=== PATIENT | male | born 1940 | race Caucasian/White ===

== ENCOUNTER 2016-08-24 08:21 | Outpatient (CLI) | payer MEDICARE, OTHER | END 2016-08-24 08:22 | disposition home or self-care (01) | DX: Z79.899 Other long term (current) drug therapy (principal); J45.20 Mild intermittent asthma, uncomplicated; Z12.5 Encounter for screening for malignant neoplasm of prostate; R73.09 Other abnormal glucose | CPT/HCPCS: 80053; 80061; 83036; 85025; G0103 ==

== ENCOUNTER 2016-11-12 11:58 | Outpatient (CLI) | payer MEDICARE, OTHER | END 2016-11-12 11:59 | disposition home or self-care (01) | DX: M51.36 Other intervertebral disc degeneration, lumbar region (principal); M47.816 Spondylosis without myelopathy or radiculopathy, lumbar region ==

== ENCOUNTER 2016-12-14 16:13 | Outpatient (CLI) | payer MEDICARE, OTHER | END 2016-12-14 16:14 | disposition home or self-care (01) | DX: R05 Cough (principal); R31.9 Hematuria, unspecified; R50.9 Fever, unspecified; R06.9 Unspecified abnormalities of breathing ==

== ENCOUNTER 2017-02-09 16:23 | Outpatient (CLI) | payer MEDICARE, OTHER | END 2017-02-09 16:24 | LOC: LAB.R 16:23 | PROVIDERS: ATTEND Internal Medicine | DX: Z79.899 Other long term (current) drug therapy (principal) | CPT/HCPCS: 82565 ==

== ENCOUNTER 2017-02-09 17:55 | Outpatient (CLI) | payer MEDICARE, OTHER ==
[2017-02-09] MEDS ORDERED: IOPAMIDOL-300 100 ML VIAL IVP ONE (19:19)
[2017-02-09] MEDS ORDERED: IOPAMIDOL-300 50 ML VIAL PO ONE (19:19)
--- NOTE | 2017-02-09 20:14 | CT Preliminary Report ---
Exam: CT Abdomen/Pelvis W/ IMPRESSION: 1. No bowel obstruction, fluid collections or acute inflammatory changes. 2. Diverticulosis. 3. Status post cholecystectomy. [facility] SITE ID: [id number]
--- NOTE | 2017-02-09 20:17 | CT Report ---
EXAM: CT ABDOMEN AND PELVIS EXAM DATE: 02/09/2017 07:17 PM. CLINICAL HISTORY: RLQ PAIN. COMPARISONS: 05/22/2013 CT. TECHNIQUE: Routine helical CT imaging was performed through the abdomen and pelvis. IV contrast: 100 mL Isovue-300. Enteric contrast: No. Reconstructions: Coronal and sagittal. In accordance with CT protocol optimization, one or more of the following dose reduction techniques w ere utilized for this exam: automated exposure control, adjustment of mA and/or KV based on patient s ize, or use of iterative reconstructive technique. FINDINGS: Lung Bases: Unremarkable. Liver: Normal. No masses. Gallbladder/Bile Ducts: The gallbladder has been removed. There is no biliary dilatation. Spleen: Normal. Pancreas: Normal. Adrenal Glands: Normal. Kidneys: Left renal 5.2 cm cyst. No hydronephrosis. Peritoneal Cavity/Bowel: Status post Julia fundoplication. There is no bowel obstruction. No free ai r or fluid collections. There is diverticulosis without diverticulitis. No evidence of appendicitis. Pelvic Organs: Normal. The bladder and visualized pelvic organs are within normal limits. Vasculature: No aneurysms or other significant abnormality. Bones: No significant abnormality. Other: None. IMPRESSION: 1. No bowel obstruction, fluid collections or acute inflammatory changes. 2. Diverticulosis. 3. Status post cholecystectomy. [facility] Referring Provider Line: [phone] SITE ID: [id number]
== END 2017-02-09 17:56 | disposition home or self-care (01) ==
LOC: DI 17:55
PROVIDERS: ATTEND Internal Medicine
DX: R10.31 Right lower quadrant pain (principal); K57.30 Diverticulosis of large intestine without perforation or abscess without bleeding; Z90.49 Acquired absence of other specified parts of digestive tract
CPT/HCPCS: 74177

== ENCOUNTER 2017-02-09 19:18 | Emergency (ER) | payer MEDICARE, OTHER ==
[2017-02-09] MEDS ORDERED: diphenhydrAMINE INJ 50 MG/ML VIAL IVP STA (19:35)
[2017-02-09] MEDS ORDERED: diphenhydrAMINE INJ 50 MG/ML VIAL ONE (19:38)
--- NOTE | 2017-02-09 19:39 | ED Physician Documentation ---
History of Present Illness - Stated complaint Stated Complaint: RASH - Chief complaint Chief Complaint: General - History obtained from History obtained from: Patient - History of Present Illness Timing: Today (He had an outpatient CAT scan tonight with IV and oral contrast to evaluate for a hernia, shortly after the contrast noticed a hive on his left shoulder and then started shaking uncontrollably. He denies any shortness of breath or throat swelling. Of note he has a history of epinephrine allergy with a similar reaction to this, shaking, uncontrollably, after eating too many oysters several years ago.) Review of Systems Constitutional: denies: Fever, Chills Cardiac: denies: Chest pain / pressure, Palpitations Respiratory: denies: Dyspnea, Cough GI: denies: Abdominal Pain PD PAST MEDICAL HISTORY - Past Medical History Cardiovascular: None Respiratory: None Neuro: None GI: Other - Past Surgical History Past Surgical History: Yes General: Appendectomy, Bowel surgery, Hiatal hernia repair, Other - Present Medications Home Medications: Ambulatory Orders Medication Instructions Recorded Confirmed Gabapentin 300 mg PO DAILY 02/09/17 02/09/17 Verapamil [Calan] 80 mg PO DAILY 02/09/17 02/09/17 - Allergies Allergies/Adverse Reactions: Allergies Allergy/AdvReac Type Severity Reaction Status Date / Time epinephrine Allergy Rash Verified 05/20/13 11:44 latex Allergy Rash Verified 05/20/13 11:44 - Social History Does the pt smoke?: No Smoking Status: Never smoker Does the pt drink ETOH?: Yes Does the pt have substance abuse?: No - Immunizations Immunizations are current?: Yes - POLST Patient has POLST: No PD ED PE NORMAL - Vitals Vital signs reviewed: Yes - General General: Alert and oriented X 3, Other (quite tremulous and anxious) - HEENT HEENT: PERRL, Pharynx benign - Cardiac Cardiac: RRR, No murmur - Respiratory Respiratory: No respiratory distress, Clear bilaterally - Abdomen Abdomen: Non tender - Derm Derm: Other (No hives are evidence at this juncture) - Extremities Extremities: Other (He has uncontrollable shaking of both lower extremities more than upper extremities.) - Neuro Neuro: Alert and oriented X 3, Normal speech - Psych Psych: Normal mood, Normal affect Results - Vitals Vitals: Vital Signs - 24 hr 02/09/17 02/09/17 19:20 19:43 Temperature 36.0 C L Heart Rate 84 68 Respiratory 18 16 Rate Blood Pressure 164/72 H 154/75 H O2 Saturation 95 98 Oxygen O2 Source Room air PD MEDICAL DECISION MAKING - ED course ED course: He has a potential allergic reaction IV contrast. The reaction is mostly shaking of the lower extremities. There is no evidence of anaphylaxis at this juncture. He says he's had similar reactions to epinephrine before given for allergic reactions. He is administered some Benadryl and observed. The shaking and all of his symptoms spontaneously stopped actually before the administration of Benadryl and he refused IV. He was given oral Benadryl and observed without further symptoms. Departure - Departure Disposition: 01 Home, Self Care Clinical Impression: Allergy to intravenous contrast Condition: Good Record reviewed to determine appropriate education?: Yes Comments: Think long and hard before receiving IV contrast again. Follow up with your physician. Your blood pressure was elevated today on check in to the emergency department. This does not mean that you have hypertension, it is a common phenomenon to check into the emergency department and have elevated blood pressure. I recommend that you see your primary care physician within the week to have it rechecked when you're feeling better.
[2017-02-09] MEDS ORDERED: diphenhydrAMINE 25 MG CAPSULE PO ONE (19:40)
[2017-02-09] MEDS: diphenhydrAMINE 25 MG CAPSULE PO STA ×2 (19:52→19:53)
[2017-02-09 20:34] VITALS: BP 149/72
== END 2017-02-09 20:30 | disposition home or self-care (01) ==
LOC: ED 19:18
DX: L27.0 Generalized skin eruption due to drugs and medicaments taken internally (principal); T50.8X5A Adverse effect of diagnostic agents, initial encounter; Y92.238 Other place in hospital as the place of occurrence of the external cause; R03.0 Elevated blood-pressure reading, without diagnosis of hypertension
CPT/HCPCS: 74177; 82565; 96374; 99283; 99284; A9270; Q9967

== ENCOUNTER 2017-08-02 08:00 | Outpatient (CLI) | payer MEDICARE, OTHER ==
[2017-08-02 16:18] LABS: CALCIUM 9.3 mg/dL (8.5-10.3); CREATININE 1.1 mg/dL (0.6-1.2)
[2017-08-02 16:50] LABS: BASOPHILS # (AUTO) 0.1 10^3/uL (0.0-0.1); BASOPHILS % (AUTO) 1.1 %; EOSINOPHILS # (AUTO) 0.6 10^3/uL (0.0-0.7); EOSINOPHILS % (AUTO) 9.6 %; HCT - HEMATOCRIT 44.6 % (42.0-52.0); HGB - HEMOGLOBIN 14.8 g/dL (14.0-18.0); LYMPHOCYTES % (AUTO) 16.1 %; MEAN CORPUSCULAR HEMOGLOBIN 30.2 pg (27.0-31.0); MEAN CORPUSCULAR HGB CONC 33.2 g/dL (32.0-36.0); MEAN CORPUSCULAR VOLUME 90.9 fL (80.0-94.0); MEAN PLATELET VOLUME 9.5 fL (7.4-11.4); MONOCYTES # (AUTO) 0.8 10^3/uL (0.0-1.0); MONOCYTES % (AUTO) 12.7 %; NEUTROPHILS # (AUTO) 3.7 10^3/uL (1.5-6.6); NEUTROPHILS % (AUTO) 60.5 %; NUCLEATED RED BLOOD CELLS AUTO 0.1 /100WBC; RED CELL DISTRIBUTION WIDTH 12.8 % (12.0-15.0); UNCORRECTED WHITE BLOOD COUNT 6.2 x10^3/uL; WHITE BLOOD COUNT 6.2 x10^3/uL (4.8-10.8)
== END 2017-08-02 08:01 | disposition home or self-care (01) ==
LOC: LAB.R 08:00
PROVIDERS: ATTEND Internal Medicine
DX: J45.901 Unspecified asthma with (acute) exacerbation (principal)
CPT/HCPCS: 80048; 85025

== ENCOUNTER 2017-10-12 08:00 | Outpatient (CLI) | payer MEDICARE, OTHER ==
[2017-10-12 11:57] LABS: ALBUMIN 4.2 g/dL (3.2-5.5); ALBUMIN/GLOBULIN RATIO 1.4 (1.0-2.2); BILIRUBIN,TOTAL 0.8 mg/dL (0.2-1.0); CALCIUM 9.3 mg/dL (8.5-10.3); CREATININE 0.9 mg/dL (0.6-1.2); TOTAL PROTEIN 7.2 g/dL (6.7-8.2)
== END 2017-10-12 08:01 | disposition home or self-care (01) ==
LOC: LAB.R 08:00
PROVIDERS: ATTEND Internal Medicine
DX: M19.90 Unspecified osteoarthritis, unspecified site (principal); J45.909 Unspecified asthma, uncomplicated; Z79.899 Other long term (current) drug therapy
CPT/HCPCS: 80053

== ENCOUNTER 2017-10-21 08:53 | Outpatient (CLI) | payer MEDICARE, OTHER ==
--- NOTE | 2017-10-21 11:52 | XRAY Report ---
TWO VIEW RIGHT HIP: 10/21/2017 CLINICAL INDICATION: Pain. FINDINGS: Frontal view of the hips and pelvis and frogleg lateral view of the right hip demonstrate moderate osteoarthritis. There is no evidence of acute fracture or dislocation. No foreign body is seen in the soft tissues. IMPRESSION: MODERATE RIGHT HIP OSTEOARTHRITIS. TD: 10/21/2017 11:51
== END 2017-10-21 08:54 | disposition home or self-care (01) ==
LOC: DI 08:53
PROVIDERS: ATTEND Internal Medicine
DX: M16.11 Unilateral primary osteoarthritis, right hip (principal)

== ENCOUNTER 2018-03-07 16:50 | Outpatient (CLI) | payer MEDICARE, OTHER ==
--- NOTE | 2018-03-08 09:22 | XRAY Report ---
Procedure Date: 03/07/2018 Accession Number: [id number] / [id number] Procedure: XR - Foot 3 View LT CPT Code: FULL RESULT: EXAM: Foot 3 View LT DATE: 03/07/2018 4:54 PM CLINICAL HISTORY: PAIN 2ND DIGIT,2ND MT L COMPARISON: None. TECHNIQUE: 3 views. FINDINGS: Bones: There is a minimal cortical irregularity about the medial aspect of the proximal second metatarsal metadiaphysis seen on one view only. Cortical contiguity is not interrupted, no displaced fracture. Bones are otherwise normal without fracture or dislocation. Joints: Normal. No subluxations. Soft Tissues: Normal. No soft tissue swelling. IMPRESSION: Question nonspecific minimal cortical irregularity about the proximal medial left second metatarsal as described. Please correlate the finding to point tenderness at this region. [facility]
== END 2018-03-07 16:51 | disposition home or self-care (01) ==
LOC: DI 16:50
PROVIDERS: ATTEND Podiatrist
DX: M79.672 Pain in left foot (principal)

== ENCOUNTER 2019-05-21 15:38 | Emergency (ER) | payer MEDICARE, OTHER ==
[2019-05-21 15:48] VITALS: BP 135/85
[2019-05-21 17:28] LABS: BASOPHILS # (AUTO) 0.1 10^3/uL (0.0-0.1); BASOPHILS % (AUTO) 0.7 %; EOSINOPHILS # (AUTO) 0.7 10^3/uL (0.0-0.7); EOSINOPHILS % (AUTO) 7.8 %; HGB - HEMOGLOBIN 13.9 g/dL (14.0-18.0); LYMPHOCYTES # (AUTO) 1.5 10^3/uL (1.5-3.5); LYMPHOCYTES % (AUTO) 15.4 %; MEAN CORPUSCULAR HEMOGLOBIN 29.6 pg (27.0-31.0); MEAN CORPUSCULAR HGB CONC 32.3 g/dL (32.0-36.0); MEAN CORPUSCULAR VOLUME 91.5 fL (80.0-94.0); MEAN PLATELET VOLUME 10.1 fL (7.4-11.4); MONOCYTES # (AUTO) 0.7 10^3/uL (0.0-1.0); MONOCYTES % (AUTO) 7.1 %; NEUTROPHILS # (AUTO) 6.5 10^3/uL (1.5-6.6); NEUTROPHILS % (AUTO) 68.6 %; PLT - PLATELET COUNT 290 10^3/uL (130-450); RED CELL DISTRIBUTION WIDTH 12.3 % (12.0-15.0); WHITE BLOOD COUNT 9.4 x10^3/uL (4.8-10.8)
--- NOTE | 2019-05-21 17:28 | Ultrasound Report ---
Reason: B LE pain s/p surgery Procedure Date: 05/21/2019 Accession Number: [id number] / [id number] Procedure: US - Duplex Ext Veins Bilateral CPT Code: FULL RESULT: EXAM: BILATERAL LOWER EXTREMITY VENOUS ULTRASOUND EXAM DATE: 05/21/2019 05:05 PM. CLINICAL HISTORY: Bilateral LE pain s/p surgery. COMPARISON: None. TECHNIQUE: Real-time sonographic vascular imaging was performed by the ware tester through the lower extremities utilizing both color-flow and Doppler spectral analysis. Multiple customer care representative static images were saved for review. FINDINGS: Right: Common Femoral Vein (CFV): Normal. CFV-GSV Junction: Normal. Profunda Femoral Vein (PFV): Normal. Femoral Vein (FV) Prox: Normal. Femoral Vein (FV) Mid: Normal. Femoral Vein (FV) Dist: Normal. Popliteal Vein: Normal. Posterior Tibial Veins: Normal. Peroneal Veins: Normal. Left: Common Femoral Vein (CFV): Normal. CFV-GSV Junction: Normal. Profunda Femoral Vein (PFV): Normal. Femoral Vein (FV) Prox: Normal. Femoral Vein (FV) Mid: Normal. Femoral Vein (FV) Dist: Normal. Popliteal Vein: Normal. Posterior Tibial Veins: Normal. Peroneal Veins: Normal. Other: None. IMPRESSION: No evidence for deep venous thrombosis bilaterally. [facility]
[2019-05-21 17:40] LABS: ALBUMIN 4.1 g/dL (3.2-5.5); ALBUMIN/GLOBULIN RATIO 1.6 (1.0-2.2); BILIRUBIN,TOTAL 0.5 mg/dL (0.2-1.0); CALCIUM 9.1 mg/dL (8.5-10.3); TOTAL PROTEIN 6.7 g/dL (6.7-8.2)
--- NOTE | 2019-05-21 18:20 | ED Physician Documentation ---
History of Present Illness - Stated complaint Stated Complaint: POST SURGICAL COMPLICATIONS - Chief complaint Chief Complaint: General - History obtained from History obtained from: Patient, Family - History of Present Illness Timing: How many days ago (several days) Pain level max: 4 Pain level now: 2 Improved by: nothing Worsened by: nothing - Additonal information Additional information: Patient is status post left total hip replacement by Dr. Blanco approximately 4 weeks ago. Started having tingling in the bilateral calves and feet. Also started having some pain. Called his office and was referred here. No chest pain. no shortness of breath. no swelling. no bruising. Review of Systems Ten Systems: 10 systems reviewed and negative Constitutional: denies: Fever, Chills Throat: denies: Sore throat Respiratory: denies: Dyspnea, Cough GI: denies: Nausea, Vomiting, Diarrhea Skin: denies: Rash Musculoskeletal: denies: Neck pain, Back pain Neurologic: denies: Headache PD PAST MEDICAL HISTORY - Past Medical History Cardiovascular: None Respiratory: None GI: Other - Past Surgical History Past Surgical History: Yes General: Appendectomy, Bowel surgery, Hiatal hernia repair, Other - Present Medications Home Medications: Ambulatory Orders Medication Instructions Recorded Confirmed Gabapentin 300 mg PO DAILY 02/09/17 02/09/17 - Allergies Allergies/Adverse Reactions: Allergies Allergy/AdvReac Type Severity Reaction Status Date / Time epinephrine Allergy Rash Verified 02/09/17 20:35 Iodine and Iodide Containing Allergy Rash Verified 02/09/17 20:35 Produc latex Allergy Rash Verified 02/09/17 20:35 - Social History Does the pt smoke?: No Smoking Status: Never smoker Does the pt drink ETOH?: Yes Does the pt have substance abuse?: No - Immunizations Immunizations are current?: Yes - POLST Patient has POLST: No PD ED PE NORMAL - Vitals Vital signs reviewed: Yes - General General: Alert and oriented X 3, No acute distress, Well developed/nourished - HEENT HEENT: Moist mucous membranes - Neck Neck: Supple, no meningeal sign - Cardiac Cardiac: RRR, Strong equal pulses - Respiratory Respiratory: No respiratory distress, Clear bilaterally - Abdomen Abdomen: Soft, Non tender, Non distended - Derm Derm: Warm and dry - Extremities Extremities: No edema, No calf tenderness / cord - Neuro Neuro: Alert and oriented X 3, No motor deficit, No sensory deficit - Psych Psych: Normal mood, Normal affect Results - Vitals Vitals: Vital Signs - 24 hr 05/21/19 15:44 Temperature 36 C L Heart Rate 73 Respiratory 18 Rate Blood Pressure 135/85 H O2 Saturation 100 Oxygen O2 Source Room air - Labs Labs: Laboratory Tests 05/21/19 05/21/19 17:15 17:15 WBC 9.4 RBC 4.70 Hgb 13.9 L Hct 43.0 MCV 91.5 MCH 29.6 MCHC 32.3 RDW 12.3 Plt Count 290 MPV 10.1 Neut # (Auto) 6.5 Lymph # (Auto) 1.5 [place] # (Auto) 0.7 Eos # (Auto) 0.7 Baso # (Auto) 0.1 Absolute Nucleated RBC 0.00 Nucleated RBC % 0.0 Sodium 141 Potassium 4.2 Chloride 106 Carbon Dioxide 29 Anion Gap 6.0 BUN 21 H Creatinine 1.0 Estimated GFR (MDRD) 72 L Glucose 96 Calcium 9.1 Total Bilirubin 0.5 AST 19 ALT 18 Alkaline Phosphatase 100 Total Protein 6.7 Albumin 4.1 Globulin 2.6 Albumin/Globulin Ratio 1.6 Lipase 22 - Rads (name of study) Duplex ultrasound bilateral lower extremity Radiology: Prelim report reviewed, EMP read contemporaneously, See rad report (Normal) PD MEDICAL DECISION MAKING - ED course Complexity details: reviewed results, re-evaluated patient, considered differential, d/w patient ED course: No acute finding on ultrasound or laboratory testing. Unclear etiology of his symptoms. Normal physical exam. No motor or sensory deficit. No evidence of infection. Patient will follow-up with his doctor for further care. Patient counseled regarding signs and symptoms for which I believe and urgent re- evaluation would be necessary. Patient with good understanding of and agreement to plan and is comfortable going home at this time This document was made in part using voice recognition software. While efforts are made to proofread this document, sound alike and grammatical errors may occur. Departure - Departure Disposition: 01 Home, Self Care Clinical Impression: Paresthesia Condition: Good Instructions: ED Paraesthesias Follow-Up: Henry Lewis MD [Primary Care Provider] - Nir Blanco DO [Physician No Access] - Within 1 week Comments: Your tests are normal today. There is no blood clot. Follow-up with Dr. Blanco for further care. Return if you worsen Discharge Date/Time: 05/21/19 18:22
== END 2019-05-21 18:22 | disposition home or self-care (01) ==
LOC: ED 15:38
DX: R20.2 Paresthesia of skin (principal)
CPT/HCPCS: 36415; 80053; 83690; 85025; 93970; 99284

== ENCOUNTER 2019-09-30 02:11 | Emergency (ER) | payer MEDICARE, OTHER ==
--- NOTE | 2019-09-30 02:23 | ED Physician Documentation ---
History of Present Illness - Stated complaint Stated Complaint: ABD PX - Chief complaint Chief Complaint: Abd Pain - Additonal information Additional information: This is a 79-year-old male with history of an appendectomy, cholecystectomy, t alc peritonitis with resultant small bowel obstructions and multiple past bowel resections, most recently in 2002, who Presents with lower abdominal pain. States that he has had some lower abdominal discomfort for last 3 days, it is mostly in the right lower quadrant and is sharp at times. He has been trying to treat this with some at home, but it is worsened to the point where he sought care tonight. He denies vomiting. He has had some diarrhea but this is chronic for him. No fever, no dysuria.No scrotal or penile pain. Review of Systems Constitutional: denies: Fever Cardiac: denies: Chest pain / pressure Respiratory: denies: Dyspnea GI: reports: Abdominal Pain : denies: Dysuria Neurologic: denies: Generalized weakness Immunocompromised: denies: Immunocompromised PD PAST MEDICAL HISTORY - Past Medical History Cardiovascular: None Respiratory: None GI: Other - Past Surgical History Past Surgical History: Yes General: Appendectomy, Bowel surgery, Hiatal hernia repair, Other - Present Medications Home Medications: Ambulatory Orders Medication Instructions Recorded Confirmed Gabapentin 300 mg PO DAILY 02/09/17 02/09/17 - Allergies Allergies/Adverse Reactions: Allergies Allergy/AdvReac Type Severity Reaction Status Date / Time epinephrine Allergy Rash Verified 02/09/17 20:35 Iodine and Iodide Containing Allergy Rash Verified 02/09/17 20:35 Produc latex Allergy Rash Verified 02/09/17 20:35 - Social History Does the pt smoke?: No Smoking Status: Never smoker Does the pt drink ETOH?: Yes Does the pt have substance abuse?: No - Immunizations Immunizations are current?: Yes - POLST Patient has POLST: No PD ED PE NORMAL - Vitals Vital signs reviewed: Yes - General General: Alert and oriented X 3 - HEENT HEENT: PERRL - Neck Neck: Supple, no meningeal sign - Cardiac Cardiac: RRR - Respiratory Respiratory: No respiratory distress, Clear bilaterally - Abdomen Abdomen: Other (Bowel sounds present, abdomen is mildly distended, there are multiple well-healed surgical incisional scars. Patient has tenderness in the right lower and left lower abdomen. No guarding.) - Derm Derm: Warm and dry - Extremities Extremities: No deformity - Neuro Neuro: Alert and oriented X 3 - Psych Psych: Normal mood, Normal affect Results - Vitals Vitals: Vital Signs - 24 hr 09/30/19 04:24 Heart Rate 78 Respiratory 16 Rate Blood Pressure 134/82 H O2 Saturation 99 Oxygen O2 Source Room air - Labs Labs: Laboratory Tests 09/30/19 09/30/19 02:35 02:35 WBC 8.1 RBC 5.21 Hgb 15.7 Hct 46.8 MCV 89.8 MCH 30.1 MCHC 33.5 RDW 12.5 Plt Count 274 MPV 10.1 Neut # (Auto) 5.3 Lymph # (Auto) 1.4 L [place] # (Auto) 0.7 Eos # (Auto) 0.6 Baso # (Auto) 0.1 Absolute Nucleated RBC 0.00 Nucleated RBC % 0.0 Sodium 141 Potassium 4.2 Chloride 102 Carbon Dioxide 27 Anion Gap 12.0 BUN 14 Creatinine 1.0 Estimated GFR (MDRD) 72 L Glucose 99 Calcium 9.2 Total Bilirubin 0.5 AST 20 ALT 22 Alkaline Phosphatase 82 Total Protein 7.2 Albumin 4.0 Globulin 3.2 Albumin/Globulin Ratio 1.3 Lipase 38 - Rads (name of study) CT abd/pelvis W Radiology: Other (Scattered air-fluid levels in the bowel which may represent mild enteritis or ileus, no small bowel obstruction. No diverticulitis. Status post cholecystectomy.) PD MEDICAL DECISION MAKING - ED course Complexity details: considered differential (Bowel obstruction, pancreatitis, enteritis, gastroenteritis, choledocholithiasis, gastritis/peptic ulcer disease, diverticulitis,Ileus/constipation) ED course: On arrival patient is nontoxic-appearing, vital signs are unremarkable. He does have mild abdominal distention and is fairly tender in his abdomen, and he has an extensive history of small bowel obstructions, resections, and talc peritonitis, so a CT scan was obtained. He was given Zofran and morphine for his symptoms. His labs show no leukocytosis or panel is unremarkable, including normal LFTs and lipase. With the morphine and the Zofran he is feeling much better. His CT scan shows some mild air-fluid levels consistent with a possible enteritis versus ileus, no signs of obstruction or other acute abdominal pathology. On repeat examination his abdomen is benign and nontender, he continues to feel well. I discussed the results of our studies today, and that while we do not see signs of acute abdominal pathology at this time if his symptoms are worsening or is having new concerning symptoms he should return to the emergency department. Patient should follow-up with his primary care provider even if he is feeling better. Patient agrees with this plan and was discharged home in the care of his . Departure - Departure Disposition: 01 Home, Self Care Clinical Impression: Abdominal pain Qualifiers: Abdominal location: lower abdomen, unspecified Qualified Code(s): R10.30 - Lower abdominal pain, unspecified Condition: Good Follow-Up: Henry Lewis MD [Primary Care Provider] - Comments: You were seen today for abdominal pain, your CT scan showed some mild inflammation versus slow movement of the contents bowel, but no obvious obstruction at this time. If you are having persistent vomiting, increasing pain, inability to pass gas or have bowel movements, or any other concerning symptoms return to the emergency department. As we discussed this could potentially progress to an obstruction or something else, so come back to the em ergency department if you are feeling worse. Even if you are feeling better please follow-up with your primary care provider and candle making supervisor. Discharge Date/Time: 09/30/19 04:26
[2019-09-30] MEDS ORDERED: MORPHINE 2 MG/ML CARPUJECT IVP STA (02:46)
[2019-09-30] MEDS ORDERED: ONDANSETRON 4 MG/2 ML VIAL IVP STA (02:46)
[2019-09-30 02:50] LABS: BASOPHILS # (AUTO) 0.1 10^3/uL (0.0-0.1); BASOPHILS % (AUTO) 1.1 %; EOSINOPHILS # (AUTO) 0.6 10^3/uL (0.0-0.7); EOSINOPHILS % (AUTO) 7.4 %; HGB - HEMOGLOBIN 15.7 g/dL (14.0-18.0); LYMPHOCYTES # (AUTO) 1.4 10^3/uL (1.5-3.5); LYMPHOCYTES % (AUTO) 16.8 %; MEAN CORPUSCULAR HEMOGLOBIN 30.1 pg (27.0-31.0); MEAN CORPUSCULAR HGB CONC 33.5 g/dL (32.0-36.0); MEAN CORPUSCULAR VOLUME 89.8 fL (80.0-94.0); MEAN PLATELET VOLUME 10.1 fL (7.4-11.4); MONOCYTES # (AUTO) 0.7 10^3/uL (0.0-1.0); MONOCYTES % (AUTO) 8.6 %; NEUTROPHILS # (AUTO) 5.3 10^3/uL (1.5-6.6); NEUTROPHILS % (AUTO) 65.7 %; PLT - PLATELET COUNT 274 10^3/uL (130-450); RED BLOOD COUNT 5.21 10^6/uL (4.70-6.10); RED CELL DISTRIBUTION WIDTH 12.5 % (12.0-15.0); WHITE BLOOD COUNT 8.1 x10^3/uL (4.8-10.8)
[2019-09-30 03:03] LABS: ALBUMIN/GLOBULIN RATIO 1.3 (1.0-2.2); BILIRUBIN,TOTAL 0.5 mg/dL (0.2-1.0); CALCIUM 9.2 mg/dL (8.5-10.3); TOTAL PROTEIN 7.2 g/dL (6.7-8.2)
[2019-09-30] MEDS ORDERED: IOVERSOL 320 100 ML VIAL IVP ONE ×2 (03:20→03:48)
--- NOTE | 2019-09-30 03:57 | CT Report ---
Reason: Lower abd pain, hx talc peritonitis, obstructions Procedure Date: 09/30/2019 Accession Number: [id number] / [id number] Procedure: CT - Abdomen/Pelvis W CPT Code: Final Report FULL RESULT: EXAM: CT ABDOMEN AND PELVIS EXAM DATE: 09/30/2019 03:46 AM. CLINICAL HISTORY: Lower abd pain, hx talc peritonitis, obstructions. COMPARISONS: ABDOMEN/PELVIS W/ 02/09/2017 7:04 PM. TECHNIQUE: Routine helical CT imaging was performed through the abdomen and pelvis. IV contrast: 100 mL OPTIRAY 320. Enteric contrast: No. Reconstructions: Coronal and sagittal. In accordance with CT protocol optimization, one or more of the following dose reduction techniques were utilized for this exam: automated exposure control, adjustment of mA and/or KV based on patient size, or use of iterative reconstructive technique. FINDINGS: Lung Bases: Unremarkable. Liver: Normal. No masses. Gallbladder/Bile Ducts: Cholecystectomy. Stable CBD without significant biliary dilation. Spleen: Normal. Pancreas: Normal. Adrenal Glands: Normal. Kidneys: Left renal cyst measuring 5.4 cm. Kidneys otherwise unremarkable. No hydronephrosis. Peritoneal Cavity/Bowel: Scattered air-fluid levels in small bowel. No distinct transition point to suggest small bowel obstruction. No significant bowel wall thickening. Appendix not visualized. Distal colonic diverticula without diverticulitis. No free fluid, free air or adenopathy. Surgical clips in upper abdomen. Pelvic Organs: Unremarkable. The bladder and visualized pelvic organs are within normal limits. Vasculature: Atherosclerotic carotid vascular disease. No abdominal aortic aneurysm. Bones: Right hip arthroplasty with associated artifact. No acute osseous abnormality. Other: None. IMPRESSION: 1. Scattered air-fluid levels in small bowel may indicate mild enteritis or ileus. No transition point visualized to suggest small bowel obstruction. 2. Colonic diverticula without acute diverticulitis. 3. Cholecystectomy. [facility]
[2019-09-30 04:25] VITALS: BP 134/82
== END 2019-09-30 04:26 | disposition home or self-care (01) ==
LOC: ED 02:11
DX: R10.31 Right lower quadrant pain (principal); R10.32 Left lower quadrant pain; R19.7 Diarrhea, unspecified; Z87.19 Personal history of other diseases of the digestive system; Z90.49 Acquired absence of other specified parts of digestive tract
CPT/HCPCS: 36415; 74177; 80053; 83690; 85025; 96374; 96375; 99284; Q9967

== ENCOUNTER 2020-02-19 15:21 | Outpatient (CLI) | payer MEDICARE, OTHER | END 2020-02-19 15:22 | disposition critical access hospital (66) | LOC: EMS 15:21 | PROVIDERS: ATTEND Surgery | DX: R10.9 Unspecified abdominal pain (principal) | CPT/HCPCS: A0425; A0427 ==

== ENCOUNTER 2020-02-19 15:42 | Emergency (ER) | payer MEDICARE, OTHER ==
[2020-02-19] MEDS ORDERED: SODIUM CHLORIDE 0.9% 1,000 ML IV STA ×2 (16:00→17:11)
[2020-02-19] MEDS ORDERED: HYDROmorphone 1 MG/ML CARPUJECT IVP STA (16:00)
[2020-02-19] MEDS ORDERED: ONDANSETRON 4 MG/2 ML VIAL IVP STA (16:00)
--- NOTE | 2020-02-19 16:05 | ED Physician Documentation ---
PD HPI ABD PAIN - Stated complaint Stated Complaint: SBO - Chief complaint Chief Complaint: Abd Pain - History obtained from History obtained from: Patient, EMS - History of Present Illness Timing - onset: Enter time (1400), Today Timing - duration: Minutes Timing - details: Abrupt onset, Still present Quality: Sharp, Pain Location: All over / everywhere Radiation: Chest Improved by: Laying still Worsened by: Moving, Breathing, Position, Palpation Associated symptoms: Nausea, Vomiting Similar symptoms before: Diagnosis (SBO) Recently seen: Not recently seen - Additional information Additional information: 80-year-old male has had a history of talc peritonitis since a procedure done years ago and he has had to have 5 revisions for lysis of adhesion from small bowel obstruction. He periodically gets small bowel obstruction requires pain medication and bowel rest usually is able to resolve this he has had to have surgery previously. He has had success with previously and this was not effective today. Last time he had to be admitted to the hospital for bowel obstruction was in 2003. His does indicate that they had [place] sprouts yesterday and the patient had quite a few. Review of Systems Constitutional: denies: Fever Eyes: denies: Decreased vision Ears: denies: Ear pain Nose: denies: Rhinorrhea / runny nose, Congestion Throat: denies: Sore throat Cardiac: denies: Chest pain / pressure, Palpitations Respiratory: denies: Dyspnea, Cough GI: reports: Abdominal Pain, Nausea, Vomiting : denies: Dysuria, Frequency PD PAST MEDICAL HISTORY - Past Medical History Cardiovascular: None Respiratory: None GI: Other - Past Surgical History Past Surgical History: Yes General: Appendectomy, Bowel surgery, Hiatal hernia repair, Other - Present Medications Home Medications: Ambulatory Orders Medication Instructions Recorded Confirmed Gabapentin 300 mg PO QDBREAKFAST 02/09/17 02/19/20 Albuterol Sulfate [Proair 2 puffs IH Q6HR PRN 02/19/20 02/19/20 Digihaler] Beclomethasone 40 Mcg [Qvar 40] 2 puffs INH BID 02/19/20 02/19/20 Cholestyramine [Questran] 4 gm PO DAILY 02/19/20 02/19/20 Finasteride [Proscar] 5 mg PO DAILY PM 02/19/20 02/19/20 Gabapentin 600 mg PO QDDINNER 02/19/20 02/19/20 Gabapentin 600 mg PO QDLUNCH 02/19/20 02/19/20 Meloxicam 15 mg PO DAILY 02/19/20 02/19/20 Mirabegron [Myrbetriq] 50 mg PO DAILY 02/19/20 02/19/20 Phenobarb/Hyoscy/Atropine/Scop 1 - 2 mg PO TID PRN 02/19/20 02/19/20 [ Tablet] Sennosides/Docusate Sodium 1 each PO BID PRN 02/19/20 02/19/20 [Docuzen Tablet] hydrOXYzine HCL [Hydroxyzine HCl] 25 mg PO TID PRN 02/19/20 02/19/20 - Allergies Allergies/Adverse Reactions: Allergies Allergy/AdvReac Type Severity Reaction Status Date / Time epinephrine Allergy Rash Verified 02/19/20 16:00 Iodine and Iodide Containing Allergy Rash Verified 02/19/20 16:00 Produc latex Allergy Rash Verified 02/19/20 16:00 - Social History Does the pt smoke?: No Smoking Status: Never smoker Does the pt drink ETOH?: Yes Does the pt have substance abuse?: No - Immunizations Immunizations are current?: Yes - POLST Patient has POLST: No PD ED PE NORMAL - Vitals Vital signs reviewed: Yes (normal ) - General General: Alert and oriented X 3, Well developed/nourished, Other (80 y/o male clutching his abdomen in waves of pain leaving a deeply furrowed brow, clinched eyes and teeth of pain expression. ) - HEENT HEENT: Atraumatic, PERRL, EOMI - Neck Neck: Supple, no meningeal sign - Cardiac Cardiac: RRR, No murmur - Respiratory Respiratory: No respiratory distress, Clear bilaterally - Abdomen Abdomen: Soft, Other (high pitched bowel sounds. General tenderness with garding. 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 ) Results - Vitals Vitals: Vital Signs - 24 hr 02/19/20 02/19/20 02/19/20 15:43 16:13 16:30 Temperature 36.5 C Heart Rate 64 56 L 72 Respiratory 20 20 17 Rate Blood Pressure 116/67 98/61 123/69 O2 Saturation 97 93 94 02/19/20 02/19/20 02/19/20 17:00 17:43 18:00 Temperature Heart Rate 88 95 96 Respiratory 20 14 13 Rate Blood Pressure 124/60 132/70 H 131/76 H O2 Saturation 92 92 96 02/19/20 02/19/20 18:30 19:00 Temperature Heart Rate 98 99 Respiratory 15 18 Rate Blood Pressure 120/71 152/85 H O2 Saturation 92 93 Oxygen O2 Source Nasal cannula - Labs Labs: Laboratory Tests 02/19/20 02/19/20 02/19/20 16:19 16:19 16:19 WBC 10.8 RBC 4.71 Hgb 14.4 Hct 43.4 MCV 92.1 MCH 30.6 MCHC 33.2 RDW 12.5 Plt Count 226 MPV 10.5 Neut # (Auto) 9.9 H Lymph # (Auto) 0.6 L [place] # (Auto) 0.1 Eos # (Auto) 0.2 Baso # (Auto) 0.0 Absolute Nucleated RBC 0.00 Nucleated RBC % 0.0 Sodium 138 Potassium 3.5 Chloride 106 Carbon Dioxide 24 Anion Gap 8.0 BUN 20 Creatinine 1.0 Estimated GFR (MDRD) 72 L Glucose 111 H Lactic Acid 1.6 Calcium 8.3 L Total Bilirubin 0.7 AST 26 ALT 21 Alkaline Phosphatase 81 Total Protein 5.8 L Albumin 3.5 Globulin 2.3 Albumin/Globulin Ratio 1.5 Lipase 34 - Rads (name of study) CT ab/pel without Radiology: Prelim report reviewed (Impression: 1. Dilated loops of jejunum in the left abdomen with fecal is is suspicious for enteritis. No discrete transition point to suggest mechanical bowel obstruction at this time.No pneumoperitoneum or free fluid prominent stool in the rectum), EMP read indepedently, See rad report PD MEDICAL DECISION MAKING - ED course Complexity details: reviewed old records, reviewed results, re-evaluated patient, considered differential, d/w patient, d/w family ED course: 80-year-old male with a history of talc peritonitis with recurrent bowel obstructions has symptoms consistent with acute obstruction and this is likely related to overindulgence and [place] sprouts yesterday. The patient is uncomfortable with the level of pain and IV saline is begun he is administered Dilaudid which appears too strong for the patient as he requires oxygen supplementation he states that he feels quite runny with that. He is subsequently administered Toradol with some improvement but no resolution and is subsequently administered morphine [address] of the abdomen and pelvis is undertaken. The CT shows evidence of large bowel obstruction with multiple air fluid levels and distention in the large intestine. He is administered an enema. At shift change his care is turned over to Dr. Woodard with hopes of the enema making this resolve. If it does not he will need admission for bowel rest and fluids. Departure - Departure Clinical Impression: Large bowel obstruction Condition: Stable
[2020-02-19 16:25] LABS: BASOPHILS % (AUTO) 0.3 %; EOSINOPHILS # (AUTO) 0.2 10^3/uL (0.0-0.7); EOSINOPHILS % (AUTO) 1.6 %; HGB - HEMOGLOBIN 14.4 g/dL (14.0-18.0); LYMPHOCYTES # (AUTO) 0.6 10^3/uL (1.5-3.5); LYMPHOCYTES % (AUTO) 5.6 %; MEAN CORPUSCULAR HEMOGLOBIN 30.6 pg (27.0-31.0); MEAN CORPUSCULAR HGB CONC 33.2 g/dL (32.0-36.0); MEAN CORPUSCULAR VOLUME 92.1 fL (80.0-94.0); MEAN PLATELET VOLUME 10.5 fL (7.4-11.4); MONOCYTES # (AUTO) 0.1 10^3/uL (0.0-1.0); MONOCYTES % (AUTO) 0.7 %; NEUTROPHILS # (AUTO) 9.9 10^3/uL (1.5-6.6); NEUTROPHILS % (AUTO) 91.2 %; PLT - PLATELET COUNT 226 10^3/uL (130-450); RED BLOOD COUNT 4.71 10^6/uL (4.70-6.10); RED CELL DISTRIBUTION WIDTH 12.5 % (12.0-15.0); WHITE BLOOD COUNT 10.8 x10^3/uL (4.8-10.8)
[2020-02-19] MEDS ORDERED: KETOROLAC 30 MG/ML VIAL IVP STA (16:31)
[2020-02-19 16:38] LABS: ALBUMIN 3.5 g/dL (3.2-5.5); ALBUMIN/GLOBULIN RATIO 1.5 (1.0-2.2); BILIRUBIN,TOTAL 0.7 mg/dL (0.2-1.0); CALCIUM 8.3 mg/dL (8.5-10.3); TOTAL PROTEIN 5.8 g/dL (6.7-8.2)
[2020-02-19] MEDS ORDERED: MORPHINE 2 MG/ML CARPUJECT IVP STA (17:11)
--- NOTE | 2020-02-19 18:54 | CT Report ---
PROCEDURE: Abdomen/Pelvis WO INDICATIONS: abdominal pain, bowel obstruction suspected TECHNIQUE: Noncontrast 5 mm thick sections acquired from the diaphragms to the symphysis. 5 mm coronal and sagi ttal reformats were then performed. For radiation dose reduction, the following was used: automated exposure control, adjustment of mA and/or kV according to patient size. COMPARISON: CT abdomen and pelvis 09/30/2018. FINDINGS: Image quality: Excellent. ABDOMEN: Lung bases: Hazy opacity of the right lung base likely atelectasis. No pleural effusion. Heart size i s normal. Small hiatal hernia. Question of fundoplication. Solid organs: Liver and spleen are normal in size. Gallbladder is surgically absent. Pancreas is n ormal in contours. No adrenal nodules. Kidneys are normal in size, without hydronephrosis or nephro lithiasis. Simple left kidney cyst measuring 5.5 cm. Small left peripelvic cysts. Peritoneum and bowel: Prominent stool in the rectum. Diverticulosis. No diverticulitis identified. Ap pendix is not seen. Fecalization within the jejunum in the left abdomen, (02/14). The loops are also m ildly dilated. There is mild mesenteric edema. The duodenum is mildly distended. Stomach is not signi ficantly distended. Gradual transition. This is in the region of the previously demonstrated mildly d ilated fluid-filled loops of small bowel on CT from September 2019. No pneumoperitoneum or free fluid. Nodes and vessels: No retroperitoneal or mesenteric adenopathy by size criteria. Aorta and inferior vena cava are normal in caliber. Miscellaneous: No ventral hernias. PELVIS: Genitourinary: Bladder is unremarkable. Miscellaneous: No inguinal hernias or adenopathy. Bones: No suspicious bony lesions. No vertebral body compression fractures. Right hip total arthrop lasty. IMPRESSION: 1. Dilated loops of jejunum in the left abdomen with fecalization is suspicious for enteritis. No dis crete transition point to suggest mechanical bowel obstruction at this time. 2. No pneumoperitoneum or free fluid. 3. Prominent stool in the rectum. Reviewed by: Luis Garcia MD on 02/19/2020 6:53 PM PDT Approved by: Luis Garcia MD on 02/19/2020 6:53 PM PDT Station ID: [id number]
[2020-02-19 20:13] VITALS: BP 149/82
== END 2020-02-19 20:35 | disposition home or self-care (01) ==
LOC: EDUNIT# → ED 15:42
DX: K56.699 Other intestinal obstruction unspecified as to partial versus complete obstruction (principal)
CPT/HCPCS: 36415; 74176; 80053; 83605; 83690; 85025; 96361; 96374; 96375; 99284; 99285; J1170

== ENCOUNTER 2021-06-23 06:46 | Outpatient (CLI) | payer MEDICARE, OTHER | END 2021-06-23 06:47 | disposition critical access hospital (66) | LOC: EMS 06:46 | DX: R10.9 Unspecified abdominal pain (principal); R11.0 Nausea; R19.8 Other specified symptoms and signs involving the digestive system and abdomen | CPT/HCPCS: A0425; A0427 ==

== ENCOUNTER 2021-06-23 07:03 | Emergency (ER) | payer MEDICARE, OTHER ==
[2021-06-23 07:37] LABS: BASOPHILS # (AUTO) 0.1 10^3/uL (0.0-0.1); BASOPHILS % (AUTO) 0.5 %; EOSINOPHILS # (AUTO) 0.2 10^3/uL (0.0-0.7); EOSINOPHILS % (AUTO) 1.4 %; HGB - HEMOGLOBIN 13.9 g/dL (14.0-18.0); LYMPHOCYTES # (AUTO) 1.1 10^3/uL (1.5-3.5); LYMPHOCYTES % (AUTO) 8.7 %; MEAN CORPUSCULAR HEMOGLOBIN 30.3 pg (27.0-31.0); MEAN CORPUSCULAR HGB CONC 33.1 g/dL (32.0-36.0); MEAN CORPUSCULAR VOLUME 91.5 fL (80.0-94.0); MEAN PLATELET VOLUME 10.4 fL (7.4-11.4); MONOCYTES # (AUTO) 0.8 10^3/uL (0.0-1.0); NEUTROPHILS # (AUTO) 10.7 10^3/uL (1.5-6.6); NEUTROPHILS % (AUTO) 82.9 %; PLT - PLATELET COUNT 208 10^3/uL (130-450); RED BLOOD COUNT 4.59 10^6/uL (4.70-6.10); RED CELL DISTRIBUTION WIDTH 12.2 % (12.0-15.0); WHITE BLOOD COUNT 12.9 x10^3/uL (4.8-10.8)
[2021-06-23 07:52] LABS: ALBUMIN 3.9 g/dL (3.2-5.5); ALBUMIN/GLOBULIN RATIO 1.6 (1.0-2.2); BILIRUBIN,TOTAL 0.5 mg/dL (0.2-1.0); CALCIUM 8.9 mg/dL (8.5-10.3); POTASSIUM 4.2 mmol/L (3.5-5.0); TOTAL PROTEIN 6.4 g/dL (6.7-8.2)
--- NOTE | 2021-06-23 08:08 | ED Physician Documentation ---
PD HPI ABD PAIN - Stated complaint Stated Complaint: ABD PX - Chief complaint Chief Complaint: Abd Pain - History obtained from History obtained from: Patient - History of Present Illness Timing - onset: Today Timing - duration: Hours Timing - details: Abrupt onset, Still present Quality: Cramping, Sharp, Pain Location: All over / everywhere Improved by: Laying still Worsened by: Moving, Position, Palpation Associated symptoms: Nausea, Constipation. No: Vomiting Similar symptoms before: Diagnosis (bowel obstruction and constipation) Recently seen: Not recently seen - Additional information Additional information: Previously well 81-year-old male with a history of talc peritonitis has developed acute abdominal pain and bloating this morning. He had severe pain and cramping in his come to the emergency department for evaluation. He has had bowel obstruction previously and has not had a bowel obstruction since 2003. In October of this year he came to the emergency department with similar symptoms a CT scan demonstrated significant constipation and he went home used an enema and was successful with this.Patient indicates that he has not otherwise been ill recently.The last time this happened to the patient he had eaten a significant quantity of [place] sprouts. He does not have any significant history today. Review of Systems Constitutional: denies: Fever Eyes: denies: Decreased vision Ears: denies: Ear pain Nose: denies: Congestion Throat: denies: Sore throat Cardiac: denies: Chest pain / pressure, Palpitations Respiratory: denies: Dyspnea GI: reports: Abdominal Pain, Constipation : denies: Dysuria, Frequency PD PAST MEDICAL HISTORY - Past Medical History Cardiovascular: None Respiratory: None GI: Other - Past Surgical History Past Surgical History: Yes General: Appendectomy, Bowel surgery, Hiatal hernia repair, Other - Present Medications Home Medications: Ambulatory Orders Medication Instructions Recorded Confirmed Gabapentin 300 mg PO QDBREAKFAST 02/09/17 06/23/21 Albuterol Sulfate [Proair 2 puffs IH Q6HR PRN 02/19/20 06/23/21 Digihaler] Beclomethasone 40 Mcg [Qvar 40] 2 puffs INH BID 02/19/20 06/23/21 Cholestyramine [Questran] 4 gm PO DAILY 02/19/20 06/23/21 Finasteride [Proscar] 5 mg PO DAILY PM 02/19/20 06/23/21 Gabapentin 600 mg PO QDDINNER 02/19/20 06/23/21 Gabapentin 600 mg PO QDLUNCH 02/19/20 06/23/21 Meloxicam 15 mg PO DAILY 02/19/20 06/23/21 Mirabegron [Myrbetriq] 50 mg PO DAILY 02/19/20 06/23/21 Phenobarb/Hyoscy/Atropine/Scop 1 - 2 mg PO TID PRN 02/19/20 06/23/21 [ Tablet] Omeprazole Magnesium 20 mg PO DAILY 06/23/21 06/23/21 Verapamil [Calan] 40 mg PO TID 06/23/21 06/23/21 - Allergies Allergies/Adverse Reactions: Allergies Allergy/AdvReac Type Severity Reaction Status Date / Time epinephrine Allergy Rash Verified 06/23/21 07:12 Iodine and Iodide Containing Allergy Rash Verified 06/23/21 07:12 Produc latex Allergy Rash Verified 06/23/21 07:12 - Social History Does the pt smoke?: No Smoking Status: Never smoker Does the pt drink ETOH?: Yes Does the pt have substance abuse?: No - Immunizations Immunizations are current?: Yes - POLST Patient has POLST: No PD ED PE NORMAL - Vitals Vital signs reviewed: Yes (hypertensive ) - General General: Alert and oriented X 3, No acute distress, Well developed/nourished - HEENT HEENT: Atraumatic, PERRL, EOMI - Neck Neck: Supple, no meningeal sign, No bony TTP - Cardiac Cardiac: RRR, No murmur - Respiratory Respiratory: No respiratory distress, Clear bilaterally - Abdomen Abdomen: Normal bowel sounds, Soft, Non tender, No organomegaly, Other (The abdomen is slightly distended but non-tender. 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, No motor deficit, No sensory deficit, Normal speech Eye Opening: Spontaneous Motor: Obeys Commands Verbal: Oriented GCS Score: 15 - Psych Psych: Normal mood, Normal affect Results - Vitals Vitals: Vital Signs - 24 hr 06/23/21 06/23/21 07:12 08:18 Temperature 36.4 C L Heart Rate 59 L 58 L Respiratory 14 12 Rate Blood Pressure 141/76 H 151/76 H O2 Saturation 98 97 Oxygen O2 Source Room air - Labs Labs: Laboratory Tests 06/23/21 06/23/21 06/23/21 07:32 07:32 08:43 WBC 12.9 H RBC 4.59 L Hgb 13.9 L Hct 42.0 MCV 91.5 MCH 30.3 MCHC 33.1 RDW 12.2 Plt Count 208 MPV 10.4 Neut # (Auto) 10.7 H Lymph # (Auto) 1.1 L [place] # (Auto) 0.8 Eos # (Auto) 0.2 Baso # (Auto) 0.1 Absolute Nucleated RBC 0.00 Nucleated RBC % 0.0 Sodium 140 Potassium 4.2 Chloride 106 Carbon Dioxide 27 Anion Gap 7.0 BUN 24 H Creatinine 1.0 Estimated GFR (MDRD) 72 L Glucose 128 H Calcium 8.9 Total Bilirubin 0.5 AST 127 H ALT 70 H Alkaline Phosphatase 106 Total Protein 6.4 L Albumin 3.9 Globulin 2.5 Albumin/Globulin Ratio 1.6 Lipase 39 Urine Color YELLOW Urine Clarity HAZY Urine pH 5.0 Ur Specific [place] >=1.030 H Urine Protein NEGATIVE Urine Glucose (UA) NEGATIVE Urine Ketones NEGATIVE Urine Occult Blood NEGATIVE Urine Nitrite POSITIVE H Urine Bilirubin NEGATIVE Urine Urobilinogen 0.2 (NORMAL) Ur Leukocyte Esterase NEGATIVE Urine RBC 0-5 Urine WBC 6-10 H Ur Squamous Epith Cells RARE Squamous Urine Bacteria Moderate H Ur Microscopic Review INDICATED Urine Culture Comments INDICATED - Rads (name of study) CT ab/pel Radiology: Prelim report reviewed (Impression: 1. Significant stool consistent with constipation. No obstruction. Diverticulosis.), EMP read indepedently, See rad report PD MEDICAL DECISION MAKING - ED course Complexity details: reviewed results, re-evaluated patient, considered differential, d/w patient ED course: 81-year-old male with a prior history of bowel obstructions comes to the emerge department with acute abdominal pain and distention and is found to have significant stool burden on his CT scan without evidence of obstruction. He has had successful use of an enema previously and this resolved his symptoms and the patient is willing to go home to do this again. He is currently not having pain. Departure - Departure Disposition: 01 Home, Self Care Clinical Impression: Constipation Qualifiers: Constipation type: unspecified constipation type Qualified Code(s): K59.00 - Constipation, unspecified Condition: Stable Instructions: ED Constipation Follow-Up: Henry Lewis MD [Primary Care Provider] - Comments: Dave, today the appearance of your CAT scan shows a significant stool burden and you have been successful previously with a enema done at home. The recommendation is to return home and do this enema again. There was no appearance of bowel obstruction on your CAT scan. When constipation occurs to this extent the recommendation is to take a regular dose of MiraLAX ( available over the counter) for at least 2 weeks to retrain your colon.
--- NOTE | 2021-06-23 08:15 | CT Report ---
PROCEDURE: Abdomen/Pelvis WO INDICATIONS: bowel obstruction TECHNIQUE: Noncontrast 5 mm thick sections acquired from the diaphragms to the symphysis. 5 mm coronal and sagi ttal reformats were then performed. For radiation dose reduction, the following was used: automated exposure control, adjustment of mA and/or kV according to patient size. COMPARISON: CT of abdomen and pelvis 02/19/2020 report only, as images are unavailable for direct rev iew. FINDINGS: Image quality: There is limited visualization of the pelvis secondary to artifact from hip arthropla sty. ABDOMEN: Lung bases: Lung bases are clear. Heart size is enlarged. Solid organs: Liver and spleen are normal in size. Gallbladder has been removed Pancreas is normal in contours. No adrenal nodules. Kidneys demonstrate mild bilateral atrophy with exophytic left re nal cysts as well as parapelvic cysts. There are noted to been present on prior exam.. Peritoneum and bowel: Unenhanced bowel loops demonstrate normal wall thickness and caliber. No free fluid or air. Prominent colonic stool is present. Minimal to mild diverticula are present without i nflammatory change. Nodes and vessels: No retroperitoneal or mesenteric adenopathy by size criteria. Aorta and inferior vena cava are normal in caliber. Miscellaneous: No ventral hernias. PELVIS: Genitourinary: Bladder wall thickness is normal. Miscellaneous: No inguinal hernias or adenopathy. Bones: No suspicious bony lesions. No vertebral body compression fractures. IMPRESSION: 1. Significant stool consistent with constipation. No obstruction. 2. Diverticulosis. Reviewed by: Maureen Helms MD on 06/23/2021 8:13 AM PDT Approved by: Maureen Helms MD on 06/23/2021 8:13 AM PDT Station ID: [id number]
[2021-06-23 08:19] VITALS: BP 151/76
[2021-06-23 08:56] LABS: BILIRUBIN,URINE NEGATIVE (NEGATIVE); GLUCOSE, URINE (UA) NEGATIVE (NEGATIVE); KETONES,URINE (UA) NEGATIVE (NEGATIVE); LEUKOCYTE ESTERASE, URINE NEGATIVE (NEGATIVE); NITRITE,URINE POSITIVE (NEGATIVE); OCCULT BLOOD,URINE NEGATIVE (NEGATIVE); PROTEIN,URINE NEGATIVE (NEGATIVE); UROBILINOGEN,URINE 0.2 (NORMAL) E.U./dL (NORMAL)
[2021-06-23 09:21] LABS: CLARITY,URINE HAZY (CLEAR)
[2021-06-23 09:23] LABS: BACTERIA,URINE Moderate /HPF (None Seen); RBC,URINE 0-5 /HPF (0-5); SQUAMOUS EPITHELIAL CELL,UR RARE Squamous (<= Few)
== END 2021-06-23 09:48 | disposition home or self-care (01) ==
LOC: EDUNIT# → SUPCPDRO 07:03 → ED 07:03
DX: K59.00 Constipation, unspecified (principal)
CPT/HCPCS: 36415; 80053; 81001; 81003; 83690; 85025; 87077; 87086; 87181; 99282; 99284

== ENCOUNTER 2021-07-07 11:45 | Outpatient (CLI) | payer MEDICARE, OTHER ==
[2021-07-07 18:27] LABS: BILIRUBIN,URINE NEGATIVE (NEGATIVE); GLUCOSE, URINE (UA) NEGATIVE (NEGATIVE); KETONES,URINE (UA) NEGATIVE (NEGATIVE); LEUKOCYTE ESTERASE, URINE NEGATIVE (NEGATIVE); NITRITE,URINE NEGATIVE (NEGATIVE); OCCULT BLOOD,URINE NEGATIVE (NEGATIVE); PH,URINE 5.5 PH (5.0-7.5); PROTEIN,URINE NEGATIVE (NEGATIVE); UROBILINOGEN,URINE 0.2 (NORMAL) E.U./dL (NORMAL)
[2021-07-07 18:44] LABS: CLARITY,URINE CLOUDY (CLEAR)
[2021-07-07 19:00] LABS: BACTERIA,URINE Many /HPF (None Seen); CRYSTALS,URINE 3-5 Uric Acid /LPF; RBC,URINE 0-5 /HPF (0-5); SQUAMOUS EPITHELIAL CELL,UR RARE Squamous (<= Few)
== END 2021-07-07 23:59 | disposition home or self-care (01) ==
LOC: LAB 11:45
PROVIDERS: ATTEND Family Medicine
DX: N39.0 Urinary tract infection, site not specified (principal)
CPT/HCPCS: 81001; 87086

== ENCOUNTER 2021-09-15 20:56 | Outpatient (CLI) | payer MEDICARE, OTHER | END 2021-09-15 20:57 | disposition critical access hospital (66) | LOC: EMS 20:56 | DX: F50.9 Eating disorder, unspecified (principal); R53.1 Weakness | CPT/HCPCS: A0425; A0427 ==

== ENCOUNTER 2021-09-15 21:15 | Emergency (ER) | payer MEDICARE, OTHER ==
--- NOTE | 2021-09-15 22:28 | ED Physician Documentation ---
History of Present Illness - Stated complaint Stated Complaint: CHILLS/SHAKING - Chief complaint Chief Complaint: Fever - History obtained from History obtained from: Patient - History of Present Illness Timing: How many days ago (2) Pain level now: 0 Improved by: nothing Worsened by: no exacerbating factors - Additonal information Additional information: c/o shaking/tremulousness x 2 days with nausea and vomiting but tolerating PO, chills but no diaphoresis. He is unaware of any fevers at home. He denies headache, denies myalgias. He says he had dyspnea and wheezing earlier today but this has resolved. He is COVID vaccinated with booster. Denies chest pain. Review of Systems Constitutional: reports: Chills. denies: Fever, Myalgias, Sweats Throat: denies: Sore throat Cardiac: reports: Reviewed and negative Respiratory: reports: Dyspnea (resolved), Wheezing. denies: Cough GI: reports: Nausea, Vomiting. denies: Abdominal Pain, Diarrhea : denies: Dysuria, Frequency Skin: denies: Rash Neurologic: denies: Generalized weakness, Headache PD PAST MEDICAL HISTORY - Past Medical History Past Medical History: Yes Cardiovascular: High cholesterol Respiratory: COPD Neuro: Headaches, Seizure disorder Endocrine/Autoimmune: None GI: Other : Benign prostate hypertrophy, Incontinence HEENT: None Psych: None Musculoskeletal: Osteoarthritis Derm: None Other Past Medical History: Multiple bowel obstructions - Past Surgical History Past Surgical History: Yes General: Appendectomy, Bowel surgery, Hiatal hernia repair, Other - Present Medications Home Medications: Ambulatory Orders Medication Instructions Recorded Confirmed Gabapentin 300 mg PO QDBREAKFAST 02/09/17 06/23/21 Albuterol Sulfate [Proair 2 puffs IH Q6HR PRN 02/19/20 06/23/21 Digihaler] Beclomethasone 40 Mcg [Qvar 40] 2 puffs INH BID 02/19/20 06/23/21 Cholestyramine [Questran] 4 gm PO DAILY 02/19/20 06/23/21 Finasteride [Proscar] 5 mg PO DAILY PM 02/19/20 06/23/21 Gabapentin 600 mg PO QDDINNER 02/19/20 06/23/21 Gabapentin 600 mg PO QDLUNCH 02/19/20 06/23/21 Meloxicam 15 mg PO DAILY 02/19/20 06/23/21 Mirabegron [Myrbetriq] 50 mg PO DAILY 02/19/20 06/23/21 Phenobarb/Hyoscy/Atropine/Scop 1 - 2 mg PO TID PRN 02/19/20 06/23/21 [ Tablet] Omeprazole Magnesium 20 mg PO DAILY 06/23/21 06/23/21 Verapamil [Calan] 40 mg PO TID 06/23/21 06/23/21 - Allergies Allergies/Adverse Reactions: Allergies Allergy/AdvReac Type Severity Reaction Status Date / Time epinephrine Allergy Rash Verified 09/15/21 21: Iodine and Iodide Containing Allergy Rash Verified 09/15/21 21:22 Produc latex Allergy Rash Verified 09/15/21 21: - Social History Does the pt smoke?: No Smoking Status: Never smoker Does the pt drink ETOH?: Yes Does the pt have substance abuse?: No - Immunizations Immunizations are current?: Yes - POLST Patient has POLST: No PD ED PE NORMAL - Vitals Vital signs reviewed: Yes - General General: Alert and oriented X 3, No acute distress, Well developed/nourished - HEENT HEENT: Moist mucous membranes - Neck Neck: Supple, no meningeal sign - Cardiac Cardiac: RRR, No murmur, No gallop, No rub - Respiratory Respiratory: No respiratory distress, Clear bilaterally - Abdomen Abdomen: Soft, Non tender - Derm Derm: Normal color, Warm and dry - Extremities Extremities: No edema Results - Vitals Vitals: Oxygen O2 Source Room air - EKG (time done) No standard instances Rate: Rate (enter#) (114), Tachy Rhythm: Sinus tachycardia [place]: LAD Intervals: Normal NM QRS: Normal Ischemia: Normal ST segments - Labs Labs: Laboratory Tests 09/15/21 09/15/21 09/15/21 22:56 23:25 23:25 WBC 13.4 H RBC 4.40 L Hgb 13.3 L Hct 40.1 L MCV 91.1 MCH 30.2 MCHC 33.2 RDW 12.8 Plt Count 174 MPV 10.9 Neut # (Auto) 11.9 H Lymph # (Auto) 0.4 L [place] # (Auto) 1.0 Eos # (Auto) 0.0 Baso # (Auto) 0.0 Absolute Nucleated RBC 0.00 Nucleated RBC % 0.0 D-Dimer Sodium 139 Potassium 3.9 Chloride 108 Carbon Dioxide 23 Anion Gap 8.0 BUN 20 Creatinine 1.1 Estimated GFR (MDRD) 64 L Glucose 178 H Lactic Acid Calcium 8.4 L Total Bilirubin 0.7 AST 25 ALT 25 Alkaline Phosphatase 85 Total Protein 6.0 L Albumin 3.4 Globulin 2.6 Albumin/Globulin Ratio 1.3 Lipase 21 L TSH Urine Color Urine Clarity Urine pH Ur Specific [place] Urine Protein Urine Glucose (UA) Urine Ketones Urine Occult Blood Urine Nitrite Urine Bilirubin Urine Urobilinogen Ur Leukocyte Esterase Ur Microscopic Review Urine Culture Comments Nasal Adenovirus (PCR) NOT DETECTED Nasal B. parapertussis DNA (PCR) NOT DETECTED Nasal Coronavir 229E PCR NOT DETECTED Nasal Coronavir HKU1 PCR NOT DETECTED Nasal Coronavir NL63 PCR NOT DETECTED Nasal Coronavir OC43 PCR NOT DETECTED Nasal Enterovir/Rhinovir PCR NOT DETECTED Nasal Influenza B PCR NOT DETECTED Nasal Influenza A PCR NOT DETECTED Nasal Parainfluen 1 PCR NOT DETECTED Nasal Parainfluen 2 PCR NOT DETECTED Nasal Parainfluen 3 PCR NOT DETECTED Nasal Parainfluen 4 PCR NOT DETECTED Nasal RSV (PCR) NOT DETECTED Nasal B.pertussis DNA PCR NOT DETECTED Nasal C.pneumoniae (PCR) NOT DETECTED Mook Human Metapneumo PCR NOT DETECTED Nasal M.pneumoniae (PCR) NOT DETECTED Nasal SARS-CoV-2 (PCR) NOT DETECTED 09/15/21 09/15/21 09/15/21 23:25 23:25 23:25 WBC RBC Hgb Hct MCV MCH MCHC RDW Plt Count MPV Neut # (Auto) Lymph # (Auto) [place] # (Auto) Eos # (Auto) Baso # (Auto) Absolute Nucleated RBC Nucleated RBC % D-Dimer > 1050.0 H Sodium Potassium Chloride Carbon Dioxide Anion Gap BUN Creatinine Estimated GFR (MDRD) Glucose Lactic Acid 1.5 Calcium Total Bilirubin AST ALT Alkaline Phosphatase Total Protein Albumin Globulin Albumin/Globulin Ratio Lipase TSH 0.66 Urine Color Urine Clarity Urine pH Ur Specific [place] Urine Protein Urine Glucose (UA) Urine Ketones Urine Occult Blood Urine Nitrite Urine Bilirubin Urine Urobilinogen Ur Leukocyte Esterase Ur Microscopic Review Urine Culture Comments Nasal Adenovirus (PCR) Nasal B. parapertussis DNA (PCR) Nasal Coronavir 229E PCR Nasal Coronavir HKU1 PCR Nasal Coronavir NL63 PCR Nasal Coronavir OC43 PCR Nasal Enterovir/Rhinovir PCR Nasal Influenza B PCR Nasal Influenza A PCR Nasal Parainfluen 1 PCR Nasal Parainfluen 2 PCR Nasal Parainfluen 3 PCR Nasal Parainfluen 4 PCR Nasal RSV (PCR) Nasal B.pertussis DNA PCR Nasal C.pneumoniae (PCR) Mook Human Metapneumo PCR Nasal M.pneumoniae (PCR) Nasal SARS-CoV-2 (PCR) 09/15/21 23:25 WBC RBC Hgb Hct MCV MCH MCHC RDW Plt Count MPV Neut # (Auto) Lymph # (Auto) [place] # (Auto) Eos # (Auto) Baso # (Auto) Absolute Nucleated RBC Nucleated RBC % D-Dimer Sodium Potassium Chloride Carbon Dioxide Anion Gap BUN Creatinine Estimated GFR (MDRD) Glucose Lactic Acid Calcium Total Bilirubin AST ALT Alkaline Phosphatase Total Protein Albumin Globulin Albumin/Globulin Ratio Lipase TSH Urine Color YELLOW Urine Clarity CLEAR Urine pH 5.0 Ur Specific [place] >=1.030 H Urine Protein TRACE Urine Glucose (UA) 100 H Urine Ketones 15 H Urine Occult Blood TRACE-INTA Urine Nitrite NEGATIVE Urine Bilirubin NEGATIVE Urine Urobilinogen 0.2 (NORMAL) Ur Leukocyte Esterase NEGATIVE Ur Microscopic Review NOT INDICATED Urine Culture Comments NOT INDICATED Nasal Adenovirus (PCR) Nasal B. parapertussis DNA (PCR) Nasal Coronavir 229E PCR Nasal Coronavir HKU1 PCR Nasal Coronavir NL63 PCR Nasal Coronavir OC43 PCR Nasal Enterovir/Rhinovir PCR Nasal Influenza B PCR Nasal Influenza A PCR Nasal Parainfluen 1 PCR Nasal Parainfluen 2 PCR Nasal Parainfluen 3 PCR Nasal Parainfluen 4 PCR Nasal RSV (PCR) Nasal B.pertussis DNA PCR Nasal C.pneumoniae (PCR) Mook Human Metapneumo PCR Nasal M.pneumoniae (PCR) Nasal SARS-CoV-2 (PCR) - Rads (name of study) chest xray Radiology: Prelim report reviewed, See rad report chest CTA Radiology: Prelim report reviewed, See rad report PD MEDICAL DECISION MAKING - ED course Complexity details: reviewed results, re-evaluated patient, considered differential, d/w patient ED course: c/o feeling tremulous, nausea/vomiting, chills and transient dyspnea/wheezing. His blood tests are nondiagnostic and without particularly concerning findings; there is mild leukocytosis but normal lactate. EKG without concerning findings except sinus tachycardia is noted, and patient remains in sinus tachycardia for most of his stay despite being afebrile, in NAD, and denies any pain until later in his stay when he developed mild bifrontal headache for which he was given acetaminophen. He is also given IV fluids. subsequent to these interventions, his tachycardia improved and then resolved. A d-dimer was performed due to unexplained tachycardia as well as patient report of having dyspnea and wheezing earlier this evening. The d-dimer returned very high (greater than) and thus a CTA chest is performed. The CTA chest does not show any acute/emergent findings such as PE or infiltrate. incidental note of large left renal cyst. I reviewed results with patient. He feels well and is comfortable with d/c home, understands that there is no specific diagnosis at this time (viral syndrome f its clinical picture but PCR respiratory panel is negative for the viruses that were tested, so this is not a definitive diagnosis). Return precautions d/w patient, encouraged to follow up with PCP Departure - Departure Disposition: 01 Home, Self Care Clinical Impression: Viral syndrome Condition: Good Instructions: ED Viral Syndrome Comments: The cause of your symptoms is not apparent based on tonight's tests. You have mild elevations in your white blood cell count and mildly elevated blood sugar, but these are non-specific findings that do not explain your symptoms nor suggest a diagnosis. Your COVID-19 swab was negative (this also tested for some other viruses including influenza, all of which were negative). Your d-dimer test was quite elevated; as we discussed, this result would be concerning for a blood clot in the lung (pulmonary embolism), but the CT scan of your chest shows no evidence of a clot. Follow up with your primary care provider; further tests are at their discretion. You should return to the emergency department if you worsen in any way, or if you develop new concerning signs/symptoms. Discharge Date/Time: 09/16/21 04:17
[2021-09-15] MEDS: SODIUM CHLORIDE 0.9% 1,000 ML IV STA (22:58)
[2021-09-15 23:31] LABS: BILIRUBIN,URINE NEGATIVE (NEGATIVE); GLUCOSE, URINE (UA) 100 mg/dL (NEGATIVE); KETONES,URINE (UA) 15 mg/dL (NEGATIVE); LEUKOCYTE ESTERASE, URINE NEGATIVE (NEGATIVE); NITRITE,URINE NEGATIVE (NEGATIVE); OCCULT BLOOD,URINE TRACE-INTA (NEGATIVE); PROTEIN,URINE TRACE mg/dL (NEGATIVE); UROBILINOGEN,URINE 0.2 (NORMAL) E.U./dL (NORMAL)
[2021-09-15 23:35] LABS: CLARITY,URINE CLEAR (CLEAR)
--- NOTE | 2021-09-15 23:35 | XRAY Report ---
PROCEDURE: Chest 2 View X-Ray INDICATIONS: dyspnea TECHNIQUE: 2 view(s) of the chest. COMPARISON: None. FINDINGS: Surgical changes and devices: None. Lungs and pleura: No pleural effusions or pneumothorax. Lungs are clear. Mediastinum: Mediastinal contours are normal. Heart size is normal. Bones and chest wall: No suspicious bony abnormalities. Soft tissues appear unremarkable. IMPRESSION: No acute cardiopulmonary process demonstrated radiographically. Reviewed by: Greyson Louise MD on 09/15/2021 11:34 PM PST Approved by: Greyson Louise MD on 09/15/2021 11:34 PM [facility] Station ID: [id number]
[2021-09-15 23:58] LABS: B. PARAPERTUSSIS- RESP PCR PAN NOT DETECTED; B. PERTUSSIS- RESP PCR PANEL NOT DETECTED; C. PNEUMONIAE- RESP PCR PANEL NOT DETECTED; CORONAVIRUS 229E-RESP PCR NOT DETECTED; CORONAVIRUS HKU1-RESP PCR NOT DETECTED; CORONAVIRUS NL63-RESP PCR NOT DETECTED; CORONAVIRUS OC43-RESP PCR NOT DETECTED; HUMAN METAPNEUMOVIRUS NOT DETECTED; INFLUENZA A- RESP PCR PANEL NOT DETECTED; INFLUENZA B - RESP PCR PANEL NOT DETECTED; M. PNEUMONIAE- RESP PCR PANEL NOT DETECTED; PARAINFLUENZA VIRUS 1 NOT DETECTED; PARAINFLUENZA VIRUS 2 NOT DETECTED; PARAINFLUENZA VIRUS 3 NOT DETECTED; PARAINFLUENZA VIRUS 4 NOT DETECTED; RHINOVIRUS/ENTEROVIRUS NOT DETECTED; RSV- RESP PCR PANEL NOT DETECTED; SARS-CoV-2 -RESP PCR PANEL NOT DETECTED
[2021-09-15 23:59] LABS: BASOPHILS % (AUTO) 0.3 %; EOSINOPHILS % (AUTO) 0.1 %; HCT - HEMATOCRIT 40.1 % (42.0-52.0); HGB - HEMOGLOBIN 13.3 g/dL (14.0-18.0); LYMPHOCYTES # (AUTO) 0.4 10^3/uL (1.5-3.5); LYMPHOCYTES % (AUTO) 2.8 %; MEAN CORPUSCULAR HEMOGLOBIN 30.2 pg (27.0-31.0); MEAN CORPUSCULAR HGB CONC 33.2 g/dL (32.0-36.0); MEAN CORPUSCULAR VOLUME 91.1 fL (80.0-94.0); MEAN PLATELET VOLUME 10.9 fL (7.4-11.4); MONOCYTES % (AUTO) 7.5 %; NEUTROPHILS # (AUTO) 11.9 10^3/uL (1.5-6.6); NEUTROPHILS % (AUTO) 88.6 %; PLT - PLATELET COUNT 174 10^3/uL (130-450); RED CELL DISTRIBUTION WIDTH 12.8 % (12.0-15.0); WHITE BLOOD COUNT 13.4 x10^3/uL (4.8-10.8)
[2021-09-16 00:02] LABS: ALBUMIN 3.4 g/dL (3.2-5.5); ALBUMIN/GLOBULIN RATIO 1.3 (1.0-2.2); BILIRUBIN,TOTAL 0.7 mg/dL (0.2-1.0); CALCIUM 8.4 mg/dL (8.5-10.3); CREATININE 1.1 mg/dL (0.6-1.2); POTASSIUM 3.9 mmol/L (3.5-5.0)
[2021-09-16] MEDS ORDERED: iohexoL-300 100 ML VIAL ONE (02:00)
[2021-09-16] MEDS: ACETAMINOPHEN 325 MG TABLET PO STA (02:20)
[2021-09-16] MEDS: iohexoL-300 100 ML VIAL IVP ONE (02:56)
[2021-09-16 04:04] VITALS: BP 134/67
--- NOTE | 2021-09-16 08:39 | CT Report ---
PROCEDURE: ANGIO CHEST W/WO INDICATIONS: tachycardia, high d-dimer CONTRAST: IV CONTRAST: Isovue 300 ml: 80 PO CONTRAST: *NO PO CONTRAST TECHNIQUE: After the administration of intravenous contrast, 2 mm axial images were acquired from the pulmonary apices to the posterior costophrenic angles during the arterial phase. In addition, 1 mm lung kernel and 5 mm soft tissue kernel reconstructions were performed. 3-dimensional coronal oblique maximum int ensity projection (MIP) reformats, 8 mm axial MIP, and 5 mm coronal and sagittal MPR reformats were t hen performed through the thorax. For radiation dose reduction, the following was used: automated exp osure control, adjustment of mA and/or kV according to patient size. COMPARISON: CXR 09/15/2021. Lung bases on CT abdomen and pelvis 06/23/2021. FINDINGS: Image quality: Excellent. Pulmonary arteries: Pulmonary arteries are normal in size, and demonstrate no intraluminal filling d efects to suggest central pulmonary embolism. Lungs and pleura: No significant acute airspace opacity. Punctate pulmonary nodule in the right lower lobe, (6/146). No pleural effusions or pneumothorax. Central and peripheral airways are patent. Mediastinum: Heart size is normal, without pericardial effusion. No mediastinal or hilar adenopathy . Thoracic aorta is normal in caliber and enhancement. Esophagus is normal in caliber, small hiatal hernia. Bones and chest wall: No suspicious bony lesions. No compression fracture. Ribs and thoracic spine a ppear intact throughout. No axillary or supraclavicular adenopathy. The thyroid is normal in size a nd there are no incidental findings. Abdomen: Visualized upper abdominal solid organs appear normal in the early arterial phase of enhanc ement. Left renal cyst measuring 5.7 cm, (5/161). Clips near the gastric cardia and spleen. Post chol ecystectomy. IMPRESSION: 1. No pulmonary embolism. 2. No acute airspace opacity. No pleural effusion. This report is concordant with the overnight preliminary interpretation. Reviewed by: Luis Garcia MD on 09/16/2021 8:38 AM [facility] Approved by: Luis Garcia MD on 09/16/2021 8:38 AM [facility] Station ID: [id number]
== END 2021-09-16 04:17 | disposition home or self-care (01) ==
LOC: EDUNIT# → ED 21:15
DX: B34.9 Viral infection, unspecified (principal); Z20.822 Contact with and (suspected) exposure to COVID-19
CPT/HCPCS: 36415; 71046; 71275; 80053; 81003; 83605; 83690; 84443; 85025; 85379; 87631; 93005; 96360; 96361; 99283; 99284; A9270; Q9967; 0202U; 81001; 87086

== ENCOUNTER 2021-09-21 08:00 | Outpatient (CLI) | payer MEDICARE, OTHER ==
[2021-09-21 17:59] LABS: BASOPHILS # (AUTO) 0.1 10^3/uL (0.0-0.1); BASOPHILS % (AUTO) 0.6 %; EOSINOPHILS # (AUTO) 0.3 10^3/uL (0.0-0.7); EOSINOPHILS % (AUTO) 2.8 %; HCT - HEMATOCRIT 43.7 % (42.0-52.0); HGB - HEMOGLOBIN 14.3 g/dL (14.0-18.0); LYMPHOCYTES # (AUTO) 1.2 10^3/uL (1.5-3.5); LYMPHOCYTES % (AUTO) 10.3 %; MEAN CORPUSCULAR HEMOGLOBIN 29.9 pg (27.0-31.0); MEAN CORPUSCULAR HGB CONC 32.7 g/dL (32.0-36.0); MEAN CORPUSCULAR VOLUME 91.4 fL (80.0-94.0); MEAN PLATELET VOLUME 10.8 fL (7.4-11.4); MONOCYTES # (AUTO) 0.8 10^3/uL (0.0-1.0); NEUTROPHILS # (AUTO) 8.9 10^3/uL (1.5-6.6); NEUTROPHILS % (AUTO) 77.2 %; PLT - PLATELET COUNT 324 10^3/uL (130-450); RED BLOOD COUNT 4.78 10^6/uL (4.70-6.10); RED CELL DISTRIBUTION WIDTH 12.6 % (12.0-15.0); WHITE BLOOD COUNT 11.5 x10^3/uL (4.8-10.8)
[2021-09-21 18:24] LABS: ALBUMIN 3.8 g/dL (3.2-5.5); ALBUMIN/GLOBULIN RATIO 1.2 (1.0-2.2); BILIRUBIN,TOTAL 0.5 mg/dL (0.2-1.0); CREATININE 1.1 mg/dL (0.6-1.2); POTASSIUM 4.4 mmol/L (3.5-5.0); TOTAL PROTEIN 6.9 g/dL (6.7-8.2)
== END 2021-09-21 23:59 ==
LOC: LAB.WCP 08:00
PROVIDERS: ATTEND Nurse Practitioner Family
DX: R53.1 Weakness (principal); R25.1 Tremor, unspecified; R79.1 Abnormal coagulation profile; Z20.822 Contact with and (suspected) exposure to COVID-19
CPT/HCPCS: 36415; 80053; 85025; 85379; U0004

== ENCOUNTER 2022-01-25 02:21 | Emergency (ER) | payer MEDICARE, OTHER ==
--- NOTE | 2022-01-25 02:22 | ED Physician Documentation ---
PD HPI ABD PAIN - Stated complaint Stated Complaint: ABD PX - History obtained from History obtained from: Patient, EMS - History of Present Illness Timing - onset: Enter time (15:00) Timing - details: Gradual onset Pain level now: 8 Quality: Fullness/distended, Pain Location: All over / everywhere Improved by: Other (no ameliorating factors) Worsened by: Palpation Associated symptoms: Nausea, Vomiting. No: Fever, Hematemesis, Diarrhea, Constipation Similar symptoms before: Diagnosis (similar to previous SBO) Recently seen: Not recently seen - Additional information Additional information: BIBA. patient c/o generalized abdominal pain , nausea and vomiting since 3 PM, steadily progressing in intensity and associated with increasing abdominal distention. He has h/o SBO requiring JODY. Given 4mg IV zofran and 4mg IV morphine en route by medics, feels worse despite these medications. Review of Systems Constitutional: reports: Reviewed and negative Cardiac: reports: Reviewed and negative Respiratory: reports: Reviewed and negative GI: reports: Abdominal Pain, Abdominal Swelling, Nausea, Vomiting : denies: Dysuria, Frequency Skin: denies: Rash Musculoskeletal: denies: Back pain PD PAST MEDICAL HISTORY - Past Medical History Past Medical History: Yes - Past Surgical History General: Bowel surgery Ortho: Hip replacement - Present Medications Home Medications: Ambulatory Orders Medication Instructions Recorded Confirmed Gabapentin 300 mg PO QDBREAKFAST 02/09/17 01/25/22 Albuterol Sulfate [Proair 2 puffs IH Q6HR PRN 02/19/20 01/25/22 Digihaler] Beclomethasone 40 Mcg [Qvar 40] 2 puffs INH BID 02/19/20 01/25/22 Cholestyramine [Questran] 4 gm PO DAILY 02/19/20 01/25/22 Finasteride [Proscar] 5 mg PO DAILY PM 02/19/20 01/25/22 Gabapentin 600 mg PO QDDINNER 02/19/20 01/25/22 Gabapentin 600 mg PO QDLUNCH 02/19/20 01/25/22 Meloxicam 15 mg PO DAILY 02/19/20 01/25/22 Mirabegron [Myrbetriq] 50 mg PO DAILY 02/19/20 01/25/22 Phenobarb/Hyoscy/Atropine/Scop 1 - 2 mg PO TID PRN 02/19/20 01/25/22 [ Tablet] Omeprazole Magnesium 20 mg PO DAILY 06/23/21 01/25/22 Verapamil [Calan] 40 mg PO TID 06/23/21 01/25/22 - Allergies Allergies/Adverse Reactions: Allergies Allergy/AdvReac Type Severity Reaction Status Date / Time epinephrine Allergy Rash Verified 01/25/22 02:30 Iodine and Iodide Containing Allergy Rash Verified 01/25/22 02:30 Produc latex Allergy Rash Verified 01/25/22 02:30 - Living Situation Living Situation: reports: With spouse/s.o. Living Arrangement: reports: At home PD ED PE NORMAL - Vitals Vital signs reviewed: Yes - General General: Alert and oriented X 3, Well developed/nourished, Other (appears to be in moderate painful distress) - HEENT HEENT: Moist mucous membranes - Cardiac Cardiac: RRR, No murmur - Respiratory Respiratory: No respiratory distress, Clear bilaterally - Back Back: No CVA TTP - Derm Derm: Normal color, Warm and dry - Extremities Extremities: No edema PD ED PE EXPANDED - Abdomen Abdomen: Decreased BS, Distended, Tender to palpation, Surgical scars Results - Vitals Vitals: Vital Signs - 24 hr 01/25/22 01/25/22 01/25/22 02:30 04:33 06:00 Temperature 36.6 C Heart Rate 76 83 86 Respiratory 12 12 11 L Rate Blood Pressure 132/78 H 168/83 H 128/77 O2 Saturation 98 96 97 01/25/22 01/25/22 08:18 10:09 Temperature Heart Rate 94 101 H Respiratory 15 15 Rate Blood Pressure 154/43 H 135/84 H O2 Saturation 97 96 Oxygen O2 Source Room air - Labs Labs: Laboratory Tests 01/25/22 01/25/22 01/25/22 02:30 02:30 09:15 WBC 18.9 H RBC 5.02 Hgb 15.2 Hct 45.3 MCV 90.2 MCH 30.3 MCHC 33.6 RDW 12.5 Plt Count 243 MPV 10.5 Neut # (Auto) 15.6 H Lymph # (Auto) 1.6 [place] # (Auto) 1.2 H Eos # (Auto) 0.3 Baso # (Auto) 0.1 Absolute Nucleated RBC 0.00 Nucleated RBC % 0.0 Sodium 142 Potassium 4.3 Chloride 107 Carbon Dioxide 24 Anion Gap 11.0 BUN 19 Creatinine 1.3 H Estimated GFR (MDRD) 53 L Glucose 162 H Calcium 9.4 Total Bilirubin 0.8 AST 22 ALT 23 Alkaline Phosphatase 97 Total Protein 6.9 Albumin 3.9 Globulin 3.0 Albumin/Globulin Ratio 1.3 Lipase 174 H Nasal Adenovirus (PCR) NOT DETECTED Nasal B. parapertussis DNA (PCR) NOT DETECTED Nasal Coronavir 229E PCR NOT DETECTED Nasal Coronavir HKU1 PCR NOT DETECTED Nasal Coronavir NL63 PCR NOT DETECTED Nasal Coronavir OC43 PCR NOT DETECTED Nasal Enterovir/Rhinovir PCR NOT DETECTED Nasal Influenza B PCR NOT DETECTED Nasal Influenza A PCR NOT DETECTED Nasal Parainfluen 1 PCR NOT DETECTED Nasal Parainfluen 2 PCR NOT DETECTED Nasal Parainfluen 3 PCR NOT DETECTED Nasal Parainfluen 4 PCR NOT DETECTED Nasal RSV (PCR) NOT DETECTED Nasal B.pertussis DNA PCR NOT DETECTED Nasal C.pneumoniae (PCR) NOT DETECTED Mook Human Metapneumo PCR NOT DETECTED Nasal M.pneumoniae (PCR) NOT DETECTED Nasal SARS-CoV-2 (PCR) NOT DETECTED - Rads (name of study) upright CXR Radiology: Prelim report reviewed, See rad report CT A/P without contrast Radiology: Prelim report reviewed, See rad report PD MEDICAL DECISION MAKING - ED course Complexity details: reviewed old records, reviewed results, re-evaluated patient, considered differential, d/w patient, d/w family ED course: BIBA for abdominal pain , distention, and n/v. EMS called [facility] to discuss appropriate facility to take patient to, as we do not have surgical services until Friday 01/26; given high suspicion for SBO, I recommended they take patient to [facility]. Patient was initially agreeable to this but then told EMS he insisted on transport to [facility]. Significant TTP on exam and thus initial study was upright CXR, no free air seen.He is given a dose of zofran in ED as well as two doses of IV fentanyl (25 mg doses) with mild improvement. CT A/P ordered with PO contrast, but patient immediately vomited when he attempted to drink any contrast. CT A/P thus pe rformed without contrast and this shows SBO. NGT is then placed with over 700 cc return and significant improvement in symptoms. 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 [facility] contacted and they will have hospitalist call back but at end of my shift I had not received a call from . I spoke with Dr. Vasquez who recommends repeat CT scan with gastrograffin through the NGT, but he is not health information clerk for [facility] and cannot accept patient to [facility]. Care of patient turned over to Dr. Cho at end of my shift pending repeat CT and subsequent disposition Departure - Departure Disposition: 02 Transfer Acute Care Hosp Clinical Impression: Small bowel obstruction Condition: Serious Discharge Date/Time: 01/25/22 11:22
[2022-01-25 02:35] LABS: BASOPHILS # (AUTO) 0.1 10^3/uL (0.0-0.1); BASOPHILS % (AUTO) 0.3 %; EOSINOPHILS # (AUTO) 0.3 10^3/uL (0.0-0.7); EOSINOPHILS % (AUTO) 1.4 %; HCT - HEMATOCRIT 45.3 % (42.0-52.0); HGB - HEMOGLOBIN 15.2 g/dL (14.0-18.0); LYMPHOCYTES # (AUTO) 1.6 10^3/uL (1.5-3.5); LYMPHOCYTES % (AUTO) 8.7 %; MEAN CORPUSCULAR HEMOGLOBIN 30.3 pg (27.0-31.0); MEAN CORPUSCULAR HGB CONC 33.6 g/dL (32.0-36.0); MEAN CORPUSCULAR VOLUME 90.2 fL (80.0-94.0); MEAN PLATELET VOLUME 10.5 fL (7.4-11.4); MONOCYTES # (AUTO) 1.2 10^3/uL (0.0-1.0); MONOCYTES % (AUTO) 6.2 %; NEUTROPHILS # (AUTO) 15.6 10^3/uL (1.5-6.6); NEUTROPHILS % (AUTO) 82.6 %; PLT - PLATELET COUNT 243 10^3/uL (130-450); RED BLOOD COUNT 5.02 10^6/uL (4.70-6.10); RED CELL DISTRIBUTION WIDTH 12.5 % (12.0-15.0); WHITE BLOOD COUNT 18.9 x10^3/uL (4.8-10.8)
[2022-01-25] MEDS ORDERED: fentaNYL 100 MCG/2 ML VIAL IVP STA ×3 (02:38→08:48)
[2022-01-25] MEDS ORDERED: SODIUM CHLORIDE 0.9% 1,000 ML IV STA (02:39)
[2022-01-25 02:49] LABS: ALBUMIN 3.9 g/dL (3.2-5.5); ALBUMIN/GLOBULIN RATIO 1.3 (1.0-2.2); BILIRUBIN,TOTAL 0.8 mg/dL (0.2-1.0); CALCIUM 9.4 mg/dL (8.5-10.3); CREATININE 1.3 mg/dL (0.6-1.2); POTASSIUM 4.3 mmol/L (3.5-5.0); TOTAL PROTEIN 6.9 g/dL (6.7-8.2)
[2022-01-25] MEDS ORDERED: ONDANSETRON 4 MG/2 ML VIAL IVP STA ×2 (03:15→08:49)
[2022-01-25] MEDS ORDERED: DIATR MEGLU/DIATRIZOATE SODIUM 120 ML BOTTLE PO ONE (03:25)
[2022-01-25] MEDS ORDERED: LIDOCAINE VISCOUS 2% 15 ML UDC MM STA (03:49)
[2022-01-25] MEDS ORDERED: LIDOCAINE 2% URO-JET 5 ML SYRINGE UR STA (03:52)
--- NOTE | 2022-01-25 08:07 | XRAY Report ---
PROCEDURE: Chest 1 View X-Ray INDICATIONS: abd. pain TECHNIQUE: One view of the chest was acquired. COMPARISON: Lung bases on CT abdomen and pelvis 01/25/2022. CXR 09/15/2021. FINDINGS: Surgical changes and devices: Multiple clips in the upper abdomen. Cholecystectomy clips. Lungs and pleura: No pleural effusions or pneumothorax. Lungs are clear. Lung volumes are slightly reduced. Mediastinum: Mediastinal contours appear unchanged. Heart size appears prominent. Bones and chest wall: No suspicious bony lesions. Prominent gastric bubble. IMPRESSION: Low lung volumes. No consolidation identified. Prominent gastric bubble. Findings could be seen in bowel obstruction. Recommend clinical correlation and if clinically indicated CT abdomen pelvis with IV contrast. This report is concordant with the overnight preliminary interpretation. Reviewed by: Luis Garcia MD on 01/25/2022 8:05 AM PDT Approved by: Luis Garcia MD on 01/25/2022 8:05 AM PDT Station ID: [id number]
--- NOTE | 2022-01-25 08:27 | CT Report ---
PROCEDURE: Abdomen/Pelvis WO INDICATIONS: abd. pain TECHNIQUE: Noncontrast 5 mm thick sections acquired from the diaphragms to the symphysis. 5 mm coronal and sagi ttal reformats were then performed. For radiation dose reduction, the following was used: automated exposure control, adjustment of mA and/or kV according to patient size. Patient was unable to drink oral contrast. COMPARISON: CT abdomen pelvis 06/23/2021 without IV contrast, CT abdomen and pelvis 09/30/2019 with IV contrast. FINDINGS: Image quality: Excellent. Evaluation of the solid organs is limited without IV contrast. ABDOMEN: Lung bases: Minimal basilar atelectasis. No pleural effusion. Small hiatal hernia. Heart size is norm al. Solid organs: Liver and spleen are normal in size. Calcified granuloma in the spleen. Gallbladder i s surgically absent. Pancreas is normal in contours. No adrenal nodules. Kidneys are normal in siz e, without hydronephrosis or nephrolithiasis. Left renal simple cyst measuring 5.8 cm. Peritoneum and bowel: Stomach is distended. Small bowel is distended with air-fluid levels. There is fecalization in the ileum and gradual transition in caliber. The colon is mostly decompressed. There are a few colonic diverticuli. No free fluid or air. There is mesenteric edema in the left paramedia n lower abdomen. Nodes and vessels: No retroperitoneal or mesenteric adenopathy by size criteria. Aorta and inferior vena cava are normal in caliber. Moderate plaque. Miscellaneous: No ventral hernias. Clips in the anterior upper abdomen. PELVIS: Genitourinary: Bladder wall thickness is normal. Miscellaneous: No inguinal hernias or adenopathy. Bones: No suspicious bony lesions. No vertebral body compression fractures. Right hip arthroplasty. IMPRESSION: 1. Small bowel obstruction with gradual transition in the proximal ileum. 2. Small hiatal hernia. Stomach is distended. 3. No free fluid. No pneumoperitoneum. This report is concordant with the overnight preliminary interpretation. Reviewed by: Luis Garcia MD on 01/25/2022 8:26 AM PDT Approved by: Luis Garcia MD on 01/25/2022 8:26 AM PDT Station ID: [id number]
[2022-01-25] MEDS ORDERED: DIATR MEGLU/DIATRIZOATE SODIUM 120 ML BOTTLE NG ONE (08:33)
[2022-01-25 10:09] VITALS: BP 135/84
[2022-01-25 10:27] LABS: B. PARAPERTUSSIS- RESP PCR PAN NOT DETECTED; B. PERTUSSIS- RESP PCR PANEL NOT DETECTED; C. PNEUMONIAE- RESP PCR PANEL NOT DETECTED; CORONAVIRUS 229E-RESP PCR NOT DETECTED; CORONAVIRUS HKU1-RESP PCR NOT DETECTED; CORONAVIRUS NL63-RESP PCR NOT DETECTED; CORONAVIRUS OC43-RESP PCR NOT DETECTED; HUMAN METAPNEUMOVIRUS NOT DETECTED; INFLUENZA A- RESP PCR PANEL NOT DETECTED; INFLUENZA B - RESP PCR PANEL NOT DETECTED; M. PNEUMONIAE- RESP PCR PANEL NOT DETECTED; PARAINFLUENZA VIRUS 1 NOT DETECTED; PARAINFLUENZA VIRUS 2 NOT DETECTED; PARAINFLUENZA VIRUS 3 NOT DETECTED; PARAINFLUENZA VIRUS 4 NOT DETECTED; RHINOVIRUS/ENTEROVIRUS NOT DETECTED; RSV- RESP PCR PANEL NOT DETECTED; SARS-CoV-2 -RESP PCR PANEL NOT DETECTED
== END 2022-01-25 11:22 | disposition short-term general hospital (02) ==
LOC: EDUNIT# → ED 02:21
DX: K56.699 Other intestinal obstruction unspecified as to partial versus complete obstruction (principal); Z20.822 Contact with and (suspected) exposure to COVID-19
CPT/HCPCS: 36415; 43753; 71045; 74176; 80053; 83690; 85025; 87633; 96361; 96374; 96375; 96376; 99284; 99285; Q9963

== ENCOUNTER 2022-05-08 09:53 | Outpatient (CLI) | payer MEDICARE, OTHER ==
--- NOTE | 2022-05-08 11:40 | CT Report ---
PROCEDURE: CT lumbar spine without contrast INDICATIONS: Low back pain with right-sided radiculopathy TECHNIQUE: Noncontrast 3 mm thick sections acquired from the T12 level to the sacrum. Sagittal and coronal refo rmats were constructed. For radiation dose reduction, the following was used: automated exposure co ntrol, adjustment of mA and/or kV according to patient size. COMPARISON: None. FINDINGS: Image quality: Excellent. Bones: There is normal bony alignment. No acute vertebral body compression fractures. No suspiciou s lytic or blastic bony lesions. Central spinal caliber is of normal overall caliber. No pars defec ts. Transitional anatomy noted. There is partial sacralization of the L5 vertebral body T12-L1: Normal in appearance. L1-L2: Normal in appearance. L2-L3: Normal in appearance. L3-L4: Normal in appearance. L4-L5: Mild disc height loss with circumferential disc bulge present. Mild central and moderate rig ht foraminal stenosis. L5-S1: Normal in appearance. Soft tissues: Partially imaged left renal cyst. Cholecystectomy. IMPRESSION: Mild degenerative disc disease and arthropathy at L4-5 results in moderate right foraminal stenosis Reviewed by: Temo Mata MD on 05/08/2022 10:39 AM ZEINAB Approved by: Temo Mata MD on 05/08/2022 10:39 AM ZEINAB Station ID: [id number]
== END 2022-05-08 09:54 | disposition home or self-care (01) ==
LOC: DI 09:53
PROVIDERS: ATTEND Registered Nurse
DX: M51.16 Intervertebral disc disorders with radiculopathy, lumbar region (principal); M47.26 Other spondylosis with radiculopathy, lumbar region; M48.061 Spinal stenosis, lumbar region without neurogenic claudication

== ENCOUNTER 2022-12-11 12:27 | Outpatient (CLI) | payer MEDICARE, OTHER | END 2022-12-11 23:59 | disposition critical access hospital (66) | LOC: EMS 12:27 | DX: R10.30 Lower abdominal pain, unspecified (principal); R19.8 Other specified symptoms and signs involving the digestive system and abdomen | CPT/HCPCS: A0425; A0427 ==

== ENCOUNTER 2022-12-11 12:44 | Inpatient (IN) | payer MEDICARE, OTHER ==
[2022-12-11 13:21] LABS: BASOPHILS # (AUTO) 0.1 10^3/uL (0.0-0.1); BASOPHILS % (AUTO) 0.3 %; EOSINOPHILS % (AUTO) 0.1 %; HCT - HEMATOCRIT 46.3 % (42.0-52.0); HGB - HEMOGLOBIN 15.2 g/dL (14.0-18.0); LYMPHOCYTES # (AUTO) 0.5 10^3/uL (1.5-3.5); LYMPHOCYTES % (AUTO) 3.2 %; MEAN CORPUSCULAR HEMOGLOBIN 29.9 pg (27.0-31.0); MEAN CORPUSCULAR HGB CONC 32.8 g/dL (32.0-36.0); MEAN CORPUSCULAR VOLUME 91.1 fL (80.0-94.0); MEAN PLATELET VOLUME 10.6 fL (7.4-11.4); MONOCYTES # (AUTO) 0.8 10^3/uL (0.0-1.0); PLT - PLATELET COUNT 247 10^3/uL (130-450); RED BLOOD COUNT 5.08 10^6/uL (4.70-6.10); RED CELL DISTRIBUTION WIDTH 12.6 % (12.0-15.0); WHITE BLOOD COUNT 16.5 x10^3/uL (4.8-10.8)
--- OUTSIDE RECORDS SUMMARY | 2022-12-11 13:27 | EXTERNAL MEDICAL SUMMARY RPT | Continuity of Care Document ---
:1940 Author Organization [facility] Address [address] [place] [address] Phone Care Team Providers Name Role Phone System Maintenance Unavailable Unavailable Allergies No information. Encounters No information. Functional Status No information. Immunizations No information. Medications date description facility 2022-11-13 00:00 cholestyramine (with sugar) All 2022-11-13 00:00 cholestyramine (with sugar) All 2022-11-13 00:00 cholestyramine (with sugar) All 2022-11-13 00:00 cholestyramine (with sugar) All Problems No information. Procedures No information. Results/Labs test date author facility value unit interpret ation Result panel 1 (unknown) (no (unknown) (unknown) (no value) (units (unk nown) date) unknown) (unknown) (no (unknown) (unknown) 09/14/22 1113 (units ( unknown) date) unknown) (unknown) (no (unknown) (unknown) 18057 (units (unkno wn) date) unknown) (unknown) (no (unknown) (unknown) Age/Sex: 82 / M (units (unknown) date) unknown) (unknown) (no (unknown) (unknown) Clinical (units (unkno wn) date) correlation unknown) suggested (unknown) (no (unknown) (unknown) : 1940 (units (unknown) date) Acct:[id number] unknown) (unknown) (no (unknown) (unknown) Date Patient (units (u nknown) date) Seen: 09/02/22 unknown) (unknown) (no (unknown) (unknown) Date of Service: (units (unknown) date) 09/02/22 unknown) (unknown) (no (unknown) (unknown) Following the (units (u nknown) date) administration of unknown) bronchodilator there was 15% improvement in FEV1 (unknown) (no (unknown) (unknown) Interpretation: (units (unknown) date) unknown) (unknown) (no (unknown) (unknown) [facility] (units (unknown) date) [address] unknown) [place] [address] (unknown) (no (unknown) (unknown) Patient: (units (unkno wn) date) Elmo Lindsay unknown) MR#: [id number] (unknown) (no (unknown) (unknown) Provider: (units (unkn own) date) Shekhar Umana MD unknown) (unknown) (no (unknown) (unknown) Pulmonary (units (unkn own) date) Function Test unknown) (unknown) (no (unknown) (unknown) Referral + (units (unk nown) date) Results unknown) (unknown) (no (unknown) (unknown) Requesting (units (unk nown) date) provider: Brenna unknown) Kayy (unknown) (no (unknown) (unknown) Results: (units (unkno wn) date) unknown) (unknown) (no (unknown) (unknown) Signed (units (unkno wn) date) By:<Electronicall unknown) y signed by Shekhar Umana MD> (unknown) (no (unknown) (unknown) The FEV1 was (units (u nknown) date) measured at 1.87 unknown) L which is 78% of predicted. (unknown) (no (unknown) (unknown) The FEV1/FVC (units (u nknown) date) ratio was 70 unknown) which is 98% of predicted. (unknown) (no (unknown) (unknown) The spirometry (units (unknown) date) demonstrates an unknown) FVC of 2.68 L which is 78% of predicted. (unknown) (no (unknown) (unknown) This study (units (unk nown) date) demonstrates unknown) probable mild obstructive lung disease based on (unknown) (no (unknown) (unknown) and a 55% (units (unkn own) date) improvement in unknown) FEF 25-75%. (unknown) (no (unknown) (unknown) improvement (units (un known) date) following unknown) bronchodilator particularly small airway flow based on (unknown) (no (unknown) (unknown) improvement in (units (unknown) date) FEF 25-75% as unknown) above (unknown) (no (unknown) (unknown) reduction FEV1 (units (unknown) date) although FEV1/FVC unknown) ratio is preserved. There is evidence of some Social History No information. Vital Signs No information.
[2022-12-11] MEDS ORDERED: HYDROmorphone 1 MG/ML CARPUJECT IVP STA (13:32)
[2022-12-11] MEDS ORDERED: diphenhydrAMINE INJ 50 MG/ML VIAL IVP STA (13:32)
[2022-12-11] MEDS ORDERED: methylPREDNISolone SUCCINATE 125 MG/2 ML VIAL IVP STA (13:32)
[2022-12-11 13:34] LABS: ALBUMIN 4.5 g/dL (3.2-5.5); ALBUMIN/GLOBULIN RATIO 1.7 (1.0-2.2); BILIRUBIN,TOTAL 1.1 mg/dL (0.2-1.0); CALCIUM 9.4 mg/dL (8.5-10.3); CREATININE 1.1 mg/dL (0.6-1.2); POTASSIUM 4.4 mmol/L (3.5-5.0); TOTAL PROTEIN 7.2 g/dL (6.7-8.2)
[2022-12-11] MEDS ORDERED: iohexoL-300 100 ML VIAL ONE (13:34)
--- NOTE | 2022-12-11 13:54 | ED Physician Documentation ---
PD HPI ABD PAIN - Stated complaint Stated Complaint: LOW ABD PX - Chief complaint Chief Complaint: Abd Pain - History obtained from History obtained from: Patient, Family - History of Present Illness Pain level max: 8 Pain level now: 6 Quality: Aching, Pain Location: All over / everywhere Radiation: No: Chest, , Lower back, Left flank, Left shoulder, Right flank, Right shoulder, Upper back Associated symptoms: Constipation. No: Fever, Diarrhea, Dizzy - Additional information Additional information: Patient is an 82-year-old male who presents to the emergency department abdominal pain. This started last night. He states that he has bloating and pain. Has had 5 bowel obstructions in the past that required surgery. The last was about 10 to 12 years ago. He has "dry heaves" today. He states he recently had a bladder sling procedure done in [place]. He received morphine with EMS. Worse with movement, better with rest. No fevers. He has felt constipated. Review of Systems Constitutional: denies: Fever, Chills Skin: denies: Rash PD PAST MEDICAL HISTORY - Past Medical History Cardiovascular: High cholesterol Respiratory: COPD Neuro: Headaches, Seizure disorder Endocrine/Autoimmune: None GI: Other : Benign prostate hypertrophy, Incontinence HEENT: None Psych: None Musculoskeletal: Osteoarthritis Derm: None - Past Surgical History Past Surgical History: Yes General: Bowel surgery Ortho: Hip replacement - Present Medications Home Medications: Ambulatory Orders Medication Instructions Recorded Confirmed Gabapentin 300 mg PO QDBREAKFAST 02/09/17 01/25/22 Albuterol Sulfate [Proair 2 puffs IH Q6HR PRN 02/19/20 01/25/22 Digihaler] Beclomethasone 40 Mcg [Qvar 40] 2 puffs INH BID 02/19/20 01/25/22 Cholestyramine [Questran] 4 gm PO DAILY 02/19/20 01/25/22 Finasteride [Proscar] 5 mg PO DAILY PM 02/19/20 01/25/22 Gabapentin 600 mg PO QDDINNER 02/19/20 01/25/22 Gabapentin 600 mg PO QDLUNCH 02/19/20 01/25/22 Meloxicam 15 mg PO DAILY 02/19/20 01/25/22 Mirabegron [Myrbetriq] 50 mg PO DAILY 02/19/20 01/25/22 Phenobarb/Hyoscy/Atropine/Scop 1 - 2 mg PO TID PRN 02/19/20 01/25/22 [ Tablet] Omeprazole Magnesium 20 mg PO DAILY 06/23/21 01/25/22 Verapamil [Calan] 40 mg PO TID 06/23/21 01/25/22 - Allergies Allergies/Adverse Reactions: Allergies Allergy/AdvReac Type Severity Reaction Status Date / Time epinephrine Allergy Rash Verified 12/11/22 12:53 latex Allergy Rash Verified 12/11/22 12:53 - Social History Does the pt smoke?: No Smoking Status: Never smoker Does the pt drink ETOH?: Yes Does the pt have substance abuse?: No - Immunizations Immunizations are current?: Yes - POLST Patient has POLST: No PD ED PE NORMAL - Vitals Vital signs reviewed: Yes - General General: Alert and oriented X 3, No acute distress - HEENT HEENT: Moist mucous membranes - Neck Neck: Supple, no meningeal sign - Cardiac Cardiac: RRR - Respiratory Respiratory: No respiratory distress, Clear bilaterally - Abdomen Abdomen: Other (diffusely tender to palpation, mildly distended.) - Back Back: No CVA TTP, No spinal TTP - Derm Derm: Warm and dry - Extremities Extremities: No edema - Neuro Neuro: Alert and oriented X 3 Results - Vitals Vitals: Vital Signs - 24 hr 12/11/22 12/11/22 12/11/22 12:48 13:10 14:08 Temperature 36.6 C Heart Rate 80 78 82 Respiratory 20 20 20 Rate Blood Pressure 153/72 H 153/78 H 133/68 H O2 Saturation 94 95 96 12/11/22 12/11/22 16:11 17:45 Temperature Heart Rate 93 96 Respiratory 20 20 Rate Blood Pressure 143/83 H O2 Saturation 96 96 Oxygen O2 Source Room air - Labs Labs: Laboratory Tests 12/11/22 12/11/22 13:16 13:16 WBC 16.5 H RBC 5.08 Hgb 15.2 Hct 46.3 MCV 91.1 MCH 29.9 MCHC 32.8 RDW 12.6 Plt Count 247 MPV 10.6 Neut # (Auto) 15.0 H Lymph # (Auto) 0.5 L [place] # (Auto) 0.8 Eos # (Auto) 0.0 Baso # (Auto) 0.1 Absolute Nucleated RBC 0.00 Nucleated RBC % 0.0 Sodium 138 Potassium 4.4 Chloride 103 Carbon Dioxide 26 Anion Gap 9.0 BUN 21 H Creatinine 1.1 Estimated GFR (MDRD) 64 L Glucose 135 H Calcium 9.4 Total Bilirubin 1.1 H AST 16 ALT 17 Alkaline Phosphatase 90 Total Protein 7.2 Albumin 4.5 Globulin 2.7 Albumin/Globulin Ratio 1.7 Lipase 37 - Rads (name of study) CT abd/pelvis Relevant Findings:: Final report received, See rad report PD Medical Decision Making - ED course Complexity details: reviewed results, re-evaluated patient, considered differential, d/w patient, d/w family, d/w [employer] consultant ED course: CT scan was consistent with a small bowel obstruction. Discussed the case with Dr. Vasquez, general surgery who came and evaluated the patient. He will follow the patient as an inpatient. NG tube was placed. Discussed the case with Dr. Nelson, hospitalist who accepts. Patient was given IV fluids and IV Dilaudid along with Zofran. CBC is remarkable for a white count of 16,500. Chemistry does not show any significant acute abnormalities. This document was made in part using voice recognition software. While efforts are made to proofread this document, sound alike and grammatical errors may occur. Departure - Departure Disposition: 66 [facility] DC/Xfer Clinical Impression: SBO (small bowel obstruction) Condition: Good Discharge Date/Time: 12/11/22 18:33
[2022-12-11] MEDS ORDERED: DIATR MEGLU/DIATRIZOATE SODIUM 120 ML BOTTLE ONE (14:02)
[2022-12-11] MEDS ORDERED: iohexoL-300 100 ML VIAL IVP ONE (15:45)
[2022-12-11] MEDS ORDERED: DIATRIZOATE MEGLU/DIATRIZO SOD 30 ML BOTTLE PO ONE (15:46)
--- NOTE | 2022-12-11 16:04 | CT Report ---
PROCEDURE: CT abdomen pelvis with contrast INDICATIONS: diffuse abd pain, swelling, PO contrast if able TECHNIQUE: After the administration of contrast, 5 mm thick sections acquired from the diaphragms to the symphys is. 5 mm thick coronal and sagittal reformats were acquired. For radiation dose reduction, the foll owing was used: automated exposure control, adjustment of mA and/or kV according to patient size. COMPARISON: 01/25/2022 FINDINGS: Lower thorax: The lung bases are clear. Heart size normal. Small hiatal hernia. Liver: Normal in size and attenuation. No contour deformity present. Biliary system: Cholecystectomy Pancreas: Unremarkable without mass or inflammation evident. Spleen: Normal in size and density. Adrenals: Normal morphology and density. Reproductive system: Surgical clips at the base of the bladder noted Urinary system: Normal renal size and attenuation. No renal calculi, hydronephrosis, or solid mass p resent. Urinary bladder unremarkable. 5.2 cm simple left renal cortical cyst Gastrointestinal system: Proximal small bowel is quite dilated and fluid-filled measuring up to 4.8 c m in diameter is dramatic transition to decompressed bowel in the left flank, consistent with obstruc tion. Surgical clips noted in the peritoneal cavity anteriorly. Multiple diverticula arise in the sig moid colon without diverticulitis. Appendix: No findings to suggest acute appendicitis. Peritoneal spaces: No mesenteric or retroperitoneal adenopathy. No free air. No free fluid. Vasculature: The IVC, aorta and iliac vasculature are unremarkable. Musculoskeletal: Normal bone mineralization. No acute fractures. Abdominal wall intact without rosa dence of ventral or inguinal hernias. Right hip prosthesis in place. IMPRESSION: Small bowel obstruction. Small bowel dilated to 5.2 cm, transition to decompressed bowel noted in the left flank. Reviewed by: Temo Mata MD on 12/11/2022 3:02 PM AKPJ Approved by: Temo Mata MD on 12/11/2022 3:02 PM AKDT Station ID: [id number]
--- NOTE | 2022-12-11 17:04 | CONSULTATION NOTE ---
Referring Provider Name of Referring Provider:: Dr. Apollo Fuentes Consult Date: 12/11/22 Chief Complaint - Chief Complaint Chief Complaint: Bowel obstruction resulting in abdominal pain History of Present Illness - Admitted From Admitted From:: [facility]'s emergency department room 9 - History Obtained From Records Reviewed: Yes History obtained from: Patient, , Dr. Joseph, and chart Exam Limitations: None. - History of Present Illness HPI Comment/Other: Dr. Huseyin Fuentes asked that I see this 82-year-old male in order to evaluate his abdominal pain secondary to a small bowel obstruction. The patient's symptoms started last night. This has been accompanied by significant abdominal bloating and dry heaves but no vomiting. The patient did have a small bowel movement this morning. The patient is currently in some distress in the sense that his abdomen is hurting and is looking for some relief. Dr. Joseph's note states that this is occurred approximately 5 times in the past but my review of his chart indicates that this is happened multiple times in the past (more than 5). He was last operated on by Dr. James Marion in either 2003 or 2004. Last year he presented with similar symptoms and as we did not have any beds was transferred to [facility] where a Gastrografin challenge was performed successfully. 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 I explained that surgery should always be entertained but it should never be the first choice. This may not be important to his current presentation but the patient did have a UroLift procedure at the end of October which has not helped. The patient and his called the urologist who apparently placed him back on medication for his BPH. They are wondering whether or not these medications played a role in his bowel obstruction. I explained that this is unlikely. History - Past Medical History Cardiovascular: reports: High cholesterol Respiratory: reports: COPD Neuro: reports: Headaches, Seizure disorder Endocrine/Autoimmune: reports: None GI: reports: Other : reports: Benign prostate hypertrophy, Incontinence HEENT: reports: None Psych: reports: None Musculoskeletal: reports: Osteoarthritis Derm: reports: None MRSA Hx?: No - Past Surgical History General: reports: Bowel surgery Ortho: reports: Hip replacement - Family & Social History Living Situation: With spouse/s.o. - POLST Patient has POLST: No Meds/Allgy - Home Medications Home Medications: Ambulatory Orders Medication Instructions Recorded Confirmed Gabapentin 300 mg PO QDBREAKFAST 02/09/17 01/25/22 Albuterol Sulfate [Proair 2 puffs IH Q6HR PRN 02/19/20 01/25/22 Digihaler] Beclomethasone 40 Mcg [Qvar 40] 2 puffs INH BID 02/19/20 01/25/22 Cholestyramine [Questran] 4 gm PO DAILY 02/19/20 01/25/22 Finasteride [Proscar] 5 mg PO DAILY PM 02/19/20 01/25/22 Gabapentin 600 mg PO QDDINNER 02/19/20 01/25/22 Gabapentin 600 mg PO QDLUNCH 02/19/20 01/25/22 Meloxicam 15 mg PO DAILY 02/19/20 01/25/22 Mirabegron [Myrbetriq] 50 mg PO DAILY 02/19/20 01/25/22 Phenobarb/Hyoscy/Atropine/Scop 1 - 2 mg PO TID PRN 02/19/20 01/25/22 [ Tablet] Omeprazole Magnesium 20 mg PO DAILY 06/23/21 01/25/22 Verapamil [Calan] 40 mg PO TID 06/23/21 01/25/22 - Allergies Allergies/Adverse Reactions: Allergies Allergy/AdvReac Type Severity Reaction Status Date / Time epinephrine Allergy Rash Verified 12/11/22 12:53 latex Allergy Rash Verified 12/11/22 12:53 Review of Systems - Eyes Eyes: denies: Pain - Ears, Nose & Throat Ears, Nose & Throat: denies: Ear pain - Cardiovascular Cariovascular: denies: Chest pain - Respiratory Respiratory: denies: Cough, Sputum production - Gastrointestinal Gastrointestinal: reports: Abdominal pain, Abdominal distention, Change in bowel habits, Nausea - Genitourinary Genitourinary: reports: Frequency - Musculoskeletal Musculoskeletal: denies: Muscle pain - Integumentary Integumentary: denies: Rash - Neurological Neurological: denies: General weakness, Focal weakness - Psychiatric Psychiatric: reports: Other (Stress as they are selling their home.) - Endocrine Endocrine: reports: Polyuria Exam - Vital Signs Reviewed Vital Signs: Yes Vital Signs: Vital Signs x48h Temp Pulse Resp BP Pulse Ox 12/11/22 16:11 93 20 96 12/11/22 14:08 82 20 133/68 H 96 12/11/22 13:10 78 20 153/78 H 95 12/11/22 12:48 36.6 C 80 20 153/72 H 94 - Physical Exam General Appearance: positive: No acute distress, Other (Clearly in some discomfort due to his abdominal distention and pain.) Eyes Bilateral: positive: No lid inflammation, Conjunctivae nml, No scleral icterus ENT: positive: Dry mucous membranes Neck: positive: Trachea midline Respiratory: positive: Chest non-tender, No respiratory distress, Breath sounds nml Cardiovascular: positive: Regular rate & rhythm, No murmur, No gallop Abdomen: positive: Other (Distended with some tenderness slightly on the left- hand side. Almost absent bowel sounds. No peritoneal findings.) Rectal: positive: Other (Deferred.) Skin: positive: Color nml, No rash, Warm, Dry. negative: Cyanosis, Diaphoresis, Pallor Extremities: positive: Non-tender, Nml appearance Neurologic/Psychiatric: positive: Oriented x3, Motor nml, Sensation nml, Depressed mood/affect Conclusion/Plan - Lab Results Lab results reviewed: Yes Fish Bones: 12/11/22 13:16 12/11/22 13:16 - Diagnostic Imaging Results Diagnostic Imaging Results: positive: Final report reviewed - Other Other Results/Comments: This is a recurrent small bowel obstruction but a transition point is not mentioned in the CT scan. The patient and his are unwilling to consider surgery as a first line therapy and this to me is reasonable. An NGT tube has already been placed and I have placed this to intermediate continuous suction with better results. The patient should also be hydrated with IV fluids and ambulate at least 3 times every 24 hours in the halls in order to promote bowel function. If he is not significantly better tomorrow then we can certainly try a Gastrografin challenge. If this fails then surgery may in fact be in order versus watchful waiting. This of course will be discussed depending on the results. My understanding is that I am a call center consultant on this case with Dr. Nelson as primary. If I can answer any questions or expedite this patient's care in the meantime please do not hesitate to contact me. I thank Dr. Joseph very much for the opportunity to participate in this patient's care. Over 60 minutes were involved in meeting with the patient, obtaining the history, performing the physical examination and completing the requisite paperwork. CPT 66199.
[2022-12-11] MEDS ORDERED: ONDANSETRON 4 MG/2 ML VIAL IVP STA (17:12)
[2022-12-11] MEDS ORDERED: SODIUM CHLORIDE 0.9% 500 ML IV ONE (17:12)
--- NOTE | 2022-12-11 17:19 | HISTORY & PHYSICAL EXAMINATION ---
Chief Complaint - Chief Complaint Chief Complaint: small bowel obstruction <Kaley Contreras - Last Filed: 12/13/22 12:07> History of Present Illness - Admitted From Admitted From:: [facility] ED - History Obtained From Records Reviewed: yes History obtained from: patient, , Dr Joseph, Dr Vasquez, and chart <DianeKaley - Last Filed: 12/13/22 12:07> - History of Present Illness HPI Comment/Other: Patient is an 82 year old male with a history of appendectomy, cholecystectomy, and multiple small bowel obstructions resulting in at least 5 hospitalizations over the last several decades. Last night, developed severe abdominal pain accompanied by significant abdominal bloating and dry heaving, but no vomiting. He also felt constipated. He came to the ER via EMS who administered morphine. In the ER, a CT confirmed small bowel obstruction. His pain was treated with IV dilaudid, which helped. Dr. Vasquez was consulted, who spoke with the patient about treatment. He discussed surgery with the patient, who stated that he was advised in the past by his aircraft stress analyst to 'not entertain surgery' because his extensive history of abdominal surgery. The naveen nicolás, his , and Dr. Vasquez agreed to try conservative measures first (watch and wait approach with possible Gastrografin challenge if no improvement). An NG tube was placed and set to intermediate continuous suction. When he presented last year with similar symptoms, a Gastrografin challenge was performed successfully at [facility]. He recently had a Urolift 3 weeks ago for BPH and has no complications. Currently, he reports that his abdominal bloating and pain have decreased. He ra miryam his pain at a 2/10 at rest, but an 8/10 if he moves, coughs, or breathes deeply. He is unable to walk due to pain, though Dr. Vasquez would like him to walk 3 times daily to promote bowel function. He did have a small bowel movement this morning. His last abdominal operation was by Dr. James Marion in when he had a small bowel resection. His chart incorrectly reported a history of COPD and hyperlipidemia, and patient requested that these diagnoses be removed. (Kaley Contreras) History - Past Medical History Respiratory: reports: Other (Pt has a history of asthma and uses an inhaler prn to prevent COPD) Neuro: reports: Headaches, Seizure disorder Endocrine/Autoimmune: reports: None GI: reports: Other (history of bowel surgery) : reports: Benign prostate hypertrophy, Incontinence HEENT: reports: None Psych: reports: None Musculoskeletal: reports: Osteoarthritis Derm: reports: None MRSA Hx?: No - Past Surgical History General: reports: Cholecystectomy (Patient had a portion of his small bowel removed in approx 2003), Appendectomy, Bowel surgery, Other Ortho: reports: Hip replacement - Family & Social History Living Situation: With spouse/s.o. - Substance History Use: Uses substance without health or social issues: Other (Patient drinks about 1-2 glasses of wine weekly) - POLST Patient has POLST: No <Kaley Contreras - Last Filed: 12/13/22 12:07> Meds/Allgy <Kaley Contreras - Last Filed: 12/13/22 12:07> <Veronica Nelson - Last Filed: 12/13/22 14:41> - Home Medications Home Medications: Ambulatory Orders Medication Instructions Recorded Confirmed Gabapentin 300 mg PO QDLUNCH 02/09/17 12/12/22 Cholestyramine [Questran] 4 gm PO DAILY 02/19/20 12/12/22 Finasteride [Proscar] 5 mg PO QPM 02/19/20 12/12/22 Gabapentin 600 mg PO QDBREAKFAST 02/19/20 12/12/22 Gabapentin 600 mg PO QDDINNER 02/19/20 12/12/22 Meloxicam 15 mg PO DAILY 02/19/20 12/12/22 Mirabegron [Myrbetriq] 50 mg PO DAILY 02/19/20 12/12/22 Omeprazole Magnesium 20 mg PO QDAC 06/23/21 12/12/22 Beclomethasone Dipropionate [Qvar 2 puffs INH DAILY 12/12/22 12/12/22 Redihaler (80 mcg)] Phenazopyridine HCl [Pyridium] 200 mg PO TID PRN 12/12/22 12/12/22 Verapamil [Calan] 120 mg PO BID 12/12/22 12/12/22 - Allergies Allergies/Adverse Reactions: Allergies Allergy/AdvReac Type Severity Reaction Status Date / Time epinephrine Allergy Rash Verified 12/11/22 12:53 latex Allergy Rash Verified 12/11/22 12:53 Review of Systems - Cardiovascular Cariovascular: denies: Chest pain - Respiratory Respiratory: denies: Cough, Sputum production, SOB at rest - Gastrointestinal Gastrointestinal: reports: Abdominal pain, Abdominal distention, Change in bowel habits, Nausea. denies: Vomiting - Genitourinary Genitourinary: reports: Frequency. denies: Hematuria - Musculoskeletal Musculoskeletal: denies: Muscle pain - Integumentary Integumentary: denies: Rash - Neurological Neurological: denies: General weakness, Focal weakness - Psychiatric Psychiatric: reports: Other (Stress as they are selling their home) - Endocrine Endocrine: reports: Polyuria <Kaley Contreras - Last Filed: 12/13/22 12:07> Exam - Vital Signs Reviewed Vital Signs: Yes - Physical Exam General Appearance: positive: No acute distress, Other (In discomfort due to his abdominal pain) Eyes Bilateral: positive: Normal inspection Neck: positive: No JVD, Trachea midline. negative: Stiff neck Respiratory: positive: No respiratory distress, Breath sounds nml Cardiovascular: positive: Regular rate & rhythm Abdomen: positive: Tenderness, Other (Decreased bowel signs with abdominal distension. Tenderness to palpation worse in the lower right quadrant) Skin: positive: Color nml, Warm, Dry. negative: Diaphoresis, Pallor Neurologic/Psychiatric: positive: Oriented x3, Mood/affect nml <Kaley Contreras - Last Filed: 12/13/22 12:07> Conclusion/Plan - Problem List (1) Small bowel obstruction Conclusion/Plan: Abdominal CT w/contrast revealed dilated proximal small bowel measuring 5.2 cm in diameter, consistent with obstruction. Transition to decompressed bowel was noted in the left flank. Dr. Vasquez was consulted earlier today and he discussed the option of surgery with the patient, which the pt and his declined at this time. The patient would like to proceed with conservative measures first. An NG tube was placed with intermediate continuous suction. Patient is noted to have elevated WBC count of 16.5, which could be from demargination or suggestive of bowel complications if no improvement with fluids and pain management. Plan: Continue IV fluids Ambulate pt at least 3 times daily to promote bowel function If no improvement by tomorrow, consider Gastrografin challenge Continue Dilaudid for pain control Monitor WBC count (2) Prerenal azotemia Conclusion/Plan: Patient's BUN was 21 and creatinine was 1.1. This elevated BUN:Creatinine ratio is likely prerenal azotemia due to dehydration. Plan: Continue IV fluids Monitor BMP daily - Lab Results Lab results reviewed: Yes Fish Bones: 12/12/22 08:32 12/12/22 08:32 - Diagnostic Imaging Results Diagnostic Imaging Results: positive: Final report reviewed <Kaley Contreras - Last Filed: 12/13/22 12:07> - Lab Results Fish Bones: 12/12/22 08:32 12/12/22 08:32 <Veronica Nelson - Last Filed: 12/13/22 14:41> - Other Other Results/Comments: Attestation: I attest that the patient was seen and examined by me with a separate encounter after being seen by the PA student. I reviewed the student's documentation including patient history, physical exam, laboratory, imaging, clinical assessment, and treatment plan. I have discussed the management of the patient with the student, with the patient, and there are no changes. (Veronica Nelson)
[2022-12-11] MEDS: SODIUM CHLORIDE 0.9% 1,000 ML IV STA ×2 (17:29→17:31)
[2022-12-11] MEDS ORDERED: PROCHLORPERAZINE 10 MG/2 ML VIAL IVP PRN (17:49)
[2022-12-11] MEDS ORDERED: ONDANSETRON 4 MG/2 ML VIAL IVP PRN (17:49)
[2022-12-11] MEDS ORDERED: SODIUM CHLORIDE FLUSH 0.9% 10 ML SYRINGE IVP PRN (17:49)
[2022-12-11] MEDS ORDERED: HYDROmorphone 1 MG/ML CARPUJECT IVP PRN (18:27)
[2022-12-11] MEDS: D5NS W/20 MEQ KCL 1,000 ML IV SCH (19:03)
--- NOTE | 2022-12-11 19:39 | XRAY Report ---
PROCEDURE: Abdomen 1 View X-Ray INDICATIONS: Verify NGT placement TECHNIQUE: One view of the abdomen acquired. COMPARISON: None. FINDINGS: Surgical changes and devices: There is a nasogastric tube with the tip at the GE junction. . Surgical clips are seen in left upper abdomen gallbladder fossa Bowel: Bowel gas pattern is normal. Soft tissues: No suspicious abdominal calcifications. Visualized solid organ contours appear normal in size. Bones: No suspicious bony lesions. IMPRESSION: The nasogastric tube tip is at the GE junction. Reviewed by: Chantale Hart MD on 12/11/2022 7:37 PM PDT Approved by: Chantale Hart MD on 12/11/2022 7:37 PM PDT Station ID: [id number]
--- NOTE | 2022-12-11 21:33 | XRAY Report ---
PROCEDURE: No-Charge 1V Abdomen INDICATIONS: NGT placement TECHNIQUE: 1 view of the abdomen was acquired. COMPARISON: Prior abdomen plain film earlier in the day FINDINGS: Surgical changes and devices: The tip of the nasogastric tube has been advanced, with the tip is seen overlying the mid stomach. The sidehole is clearly seen below the level of the diaphragm. Cholecystectomy clips and left upper quadrant clips are seen. Bowel: No pneumoperitoneum. The bowel gas pattern is normal. Soft tissues: No masses; visualized solid organ contours appear normal in size. No suspicious abdom inal calcifications. Bones: No suspicious bony abnormalities. IMPRESSION: The tip of the nasogastric tube is now seen overlying the mid stomach, with the sidehole below the [place] of the diaphragm. Reviewed by: De Anthony MD on 12/11/2022 8:32 PM ZEINAB Approved by: De Anthony MD on 12/11/2022 8:32 PM ZEINAB Station ID: [id number]
--- NOTE | 2022-12-11 23:12 | PROVIDER PROGRESS NOTE ---
Veterinary Technician Instructor Note - Veterinary Technician Instructor Note Veterinary Technician Instructor Note: NGT in place and NGT care and low intermittent suction
[2022-12-12 03:11] LABS: GLUCOSE, URINE (UA) NEGATIVE (NEGATIVE); KETONES,URINE (UA) TRACE mg/dL (NEGATIVE); LEUKOCYTE ESTERASE, URINE NEGATIVE (NEGATIVE); NITRITE,URINE POSITIVE (NEGATIVE); OCCULT BLOOD,URINE NEGATIVE (NEGATIVE); PROTEIN,URINE 30 mg/dL (NEGATIVE); UROBILINOGEN,URINE 1 (NORMAL) E.U./dL (NORMAL)
[2022-12-12 03:19] LABS: BILIRUBIN,URINE NEGATIVE (NEGATIVE); CLARITY,URINE CLEAR (CLEAR); ICTOTEST,URINE NEGATIVE; WBC,URINE 0-3 /HPF (0-3)
[2022-12-12 03:20] LABS: BACTERIA,URINE Few /HPF (None Seen); MUCUS,URINE Moderate Strands; RBC,URINE 0-5 /HPF (0-5); SQUAMOUS EPITHELIAL CELL,UR MOD Squamous (<= Few)
[2022-12-12] MEDS: SODIUM CHLORIDE FLUSH 0.9% 10 ML SYRINGE IVP SCH ×3 (04:25→17:59)
[2022-12-12] MEDS: D5NS W/20 MEQ KCL 1,000 ML IV SCH ×2 (04:31→13:55)
--- NOTE | 2022-12-12 08:28 | PROVIDER PROGRESS NOTE ---
Assessment/Plan - Problem List (1) Small bowel obstruction Assessment/Plan: Abdominal CT w/contrast revealed dilated proximal small bowel measuring 5.2 cm in diameter, consistent with obstruction. Transition to decompressed bowel was noted in the left flank. Dr. Vasquez was consulted 12/11 and he discussed the option of surgery with the patient, which the pt and his declined at this time. The patient would like to proceed with conservative measures first. An NG tube was placed with intermediate continuous suction 12/11. Patient was noted to have elevated WBC count of 16.5 on admission, which was likely from demargination as it has resolved today. Dr. Moe spoke with patient today and proceeded with a Gastrograffin challenge. By noon, he has had 5 bowel movements that he described as "violent squirts". NG tube was removed 12/12 and patient transitioned to pureed diet as tolerated. Plan: Continue pureed diet and possibly transition to normal diet by morning Continue IV fluids Ambulate pt at least 3 times daily to promote bowel function Continue Dilaudid prn for pain control (2) Elevated LFTs (R79.89) Due to a slightly elevated bilirubin of 1.1 yesterday, I ordered a CMP today to check liver function. I reviewed his labs today and found that while his bilirubin is now normal, his AST increased from 16 to 243 and ALT from 17 to 243 since yesterday. His alk-phos also increased from 90 to 174. Lipase is normal at 26. CT w/contrast shows liver is normal in size and attenuation. No contour deformity present. He has a hx of cholecystectomy which rules out gallbladder pathology. He has also not been hypotensive during his stay which makes shock liver less likely. He also has no signs of acute liver failure. Patient reports that he is not a heavy drinker and has only 1-2 glasses of wine weekly. In this last week, he did drink Tuesday, , and Tuesday (approx 1-3 glasses of wine each day) because he's had house guests. When the nurse asked further questions about drinking such as "has anyone ever told you that you have a problem with drinking" and "has drinking ever interfered with your life", he became very agitated and felt singled out by this questioning. He does not wish to extend his stay in the hospital for further liver testing, but rather explore this as outpatient. For this reason, I will not order a liver ultrasound at this time. Plan: Continue to monitor LFTs (3) Prerenal azotemia Conclusion/Plan: RESOLVED Patient's BUN was 21 and creatinine was 1.1 on admission. This elevated BUN/Creatinine ratio was likely prerenal azotemia due to dehydration, as it has resolved today after IV fluids. Plan: Continue IV fluids Monitor BMP daily - Current Meds Current Meds: Current Medications Generic Name Dose Route Start Last Admin Trade Name Freq PRN Reason Stop Dose Admin Hydromorphone HCl 1 mg 12/11/22 18:27 12/11/22 19:09 Hydromorphone 1 Mg/Ml Carpuject IVP 1 mg Q2HR PRN Administration Severe Pain (Level 7-10) Potassium Chloride/Dextrose/Sod Cl 1,000 mls @ 100 mls/hr 12/11/22 18:00 12/12/22 07:00 D5ns W/20 Meq Kcl IV 100 mls/hr .Q10H [facility] Infusion Prochlorperazine Edisylate 10 mg 12/11/22 17:49 12/11/22 19:07 Prochlorperazine 10 Mg/2 Ml Vial IVP 10 mg Q6HR PRN Administration Nausea / Vomiting Sodium Chloride 10 ml 12/12/22 01:00 12/12/22 08:08 Sodium Chloride Flush 0.9% 10 Ml Syringe IVP Not Given 0100,0900,1700 [facility] - Lab Result Lab results reviewed: Yes Fish Bone Diagrams: 12/12/22 08:32 12/12/22 08:32 Subjective - Subjective Patient Reports: Feeling Better, Other (Pt feels much better today and reports 0/10 abdominal pain. He is also able to ambulate without pain. His only concern today is a dry throat. He denies flatus and bowel movement) Objective Vital Signs: Vital Signs - 24 hr 12/11/22 12/11/22 12/11/22 12:48 13:10 14:08 Temperature 36.6 C Heart Rate 80 78 82 Heart Rate [ Brachial] Respiratory 20 20 20 Rate Blood Pressure 153/72 H 153/78 H 133/68 H Blood Pressure [Right Brachial artery] O2 Saturation 94 95 96 12/11/22 12/11/22 12/11/22 16:11 17:45 21:00 Temperature 36.6 C Heart Rate 93 96 Heart Rate [ 95 Brachial] Respiratory 20 20 20 Rate Blood Pressure 143/83 H Blood Pressure 130/70 [Right Brachial artery] O2 Saturation 96 96 92 12/11/22 12/12/22 12/12/22 23:49 04: 07:24 Temperature 36.8 C 36.8 C 36.5 C Heart Rate Heart Rate [ 89 92 82 Brachial] Respiratory 16 18 16 Rate Blood Pressure Blood Pressure 136/64 H 147/72 H 131/65 H [Right Brachial artery] O2 Saturation 93 94 94 Oxygen O2 Source Room air I&O (Last 24 Hrs): Intake and Output Totals x24h 12/10/22 12/11/22 12/12/22 23:59 23:59 23:59 Intake Total 1005 1245.000 Output Total 800 375 Balance 205 870.000 General: Alert, Oriented x3, No acute distress Neck: No JVD Neuro: Alert, Oriented Times 3 Cardiovascular: Regular rate Respiratory: Breath sounds nml Abdomen: Other (High pitched bowel sounds in LLQ, but otherwise hypoactive sounds. Reduced distension from yesterday) Skin: No rashes - Results Results: Laboratory Results WBC 16.5 x10^3/uL (4.8-10.8) H 12/11/22 13:16 RBC 5.08 10^6/uL (4.70-6.10) 12/11/22 13:16 Hgb 15.2 g/dL (14.0-18.0) 12/11/22 13:16 Hct 46.3 % (42.0-52.0) 12/11/22 13:16 MCV 91.1 fL (80.0-94.0) 12/11/22 13:16 MCH 29.9 pg (27.0-31.0) 12/11/22 13:16 MCHC 32.8 g/dL (32.0-36.0) 12/11/22 13:16 RDW 12.6 % (12.0-15.0) 12/11/22 13:16 Plt Count 247 10^3/uL (130-450) 12/11/22 13:16 MPV 10.6 fL (7.4-11.4) 12/11/22 13:16 Neut # (Auto) 15.0 10^3/uL (1.5-6.6) H 12/11/22 13:16 Lymph # (Auto) 0.5 10^3/uL (1.5-3.5) L 12/11/22 13:16 [place] # (Auto) 0.8 10^3/uL (0.0-1.0) 12/11/22 13:16 Eos # (Auto) 0.0 10^3/uL (0.0-0.7) 12/11/22 13:16 Baso # (Auto) 0.1 10^3/uL (0.0-0.1) 12/11/22 13:16 Absolute Nucleated RBC 0.00 x10^3/uL 12/11/22 13:16 Nucleated RBC % 0.0 /100WBC 12/11/22 13:16 Sodium 138 mmol/L (135-145) 12/11/22 13:16 Potassium 4.4 mmol/L (3.5-5.0) 12/11/22 13:16 Chloride 103 mmol/L (101-111) 12/11/22 13:16 Carbon Dioxide 26 mmol/L (21-32) 12/11/22 13:16 Anion Gap 9.0 (6-13) 12/11/22 13:16 BUN 21 mg/dL (6-20) H 12/11/22 13:16 Creatinine 1.1 mg/dL (0.6-1.2) 12/11/22 13:16 Estimated GFR (MDRD) 64 (>89) L 12/11/22 13:16 Glucose 135 mg/dL (70-100) H 12/11/22 13:16 Calcium 9.4 mg/dL (8.5-10.3) 12/11/22 13:16 Total Bilirubin 1.1 mg/dL (0.2-1.0) H 12/11/22 13:16 AST 16 IU/L (10-42) 12/11/22 13:16 ALT 17 IU/L (10-60) 12/11/22 13:16 Alkaline Phosphatase 90 IU/L (42-121) 12/11/22 13:16 Total Protein 7.2 g/dL (6.7-8.2) 12/11/22 13:16 Albumin 4.5 g/dL (3.2-5.5) 12/11/22 13:16 Globulin 2.7 g/dL (2.1-4.2) 12/11/22 13:16 Albumin/Globulin Ratio 1.7 (1.0-2.2) 12/11/22 13:16 Lipase 37 U/L (22-51) 12/11/22 13:16 Urine Color DARK YELLOW 12/12/22 03:02 Urine Clarity CLEAR (CLEAR) 12/12/22 03:02 Urine pH 6.0 PH (5.0-7.5) 12/12/22 03:02 Ur Specific [place] 1.020 (1.002-1.030) 12/12/22 03:02 Urine Protein 30 mg/dL (NEGATIVE) H 12/12/22 03:02 Urine Glucose (UA) NEGATIVE mg/dL (NEGATIVE) 12/12/22 03:02 Urine Ketones TRACE mg/dL (NEGATIVE) 12/12/22 03:02 Urine Occult Blood NEGATIVE (NEGATIVE) 12/12/22 03:02 Urine Nitrite POSITIVE (NEGATIVE) H 12/12/22 03:02 Urine Bilirubin NEGATIVE (NEGATIVE) 12/12/22 03:02 Urine Urobilinogen 1 (NORMAL) E.U./dL (NORMAL) 12/12/22 03:02 Ur Leukocyte Esterase NEGATIVE (NEGATIVE) 12/12/22 03:02 Urine RBC 0-5 /HPF (0-5) 12/12/22 03:02 Urine WBC 0-3 /HPF (0-3) 12/12/22 03:02 Ur Squamous Epith Cells MOD Squamous (<= Few) H 12/12/22 03:02 Urine Bacteria Few /HPF (None Seen) 12/12/22 03:02 Urine Mucus Moderate Strands 12/12/22 03:02 Ur Microscopic Review INDICATED 12/12/22 03:02 Urine Culture Comments NOT INDICATED 12/12/22 03:02 ABX Reporting Has patient been on IV antibiotics over the past 48 hours?: No
[2022-12-12 08:37] LABS: BASOPHILS % (AUTO) 0.5 %; EOSINOPHILS # (AUTO) 0.1 10^3/uL (0.0-0.7); EOSINOPHILS % (AUTO) 1.3 %; HGB - HEMOGLOBIN 12.8 g/dL (14.0-18.0); LYMPHOCYTES # (AUTO) 0.7 10^3/uL (1.5-3.5); LYMPHOCYTES % (AUTO) 8.1 %; MEAN CORPUSCULAR HGB CONC 32.8 g/dL (32.0-36.0); MEAN CORPUSCULAR VOLUME 91.3 fL (80.0-94.0); MEAN PLATELET VOLUME 10.5 fL (7.4-11.4); MONOCYTES # (AUTO) 0.9 10^3/uL (0.0-1.0); MONOCYTES % (AUTO) 11.1 %; NEUTROPHILS # (AUTO) 6.6 10^3/uL (1.5-6.6); NEUTROPHILS % (AUTO) 78.8 %; PLT - PLATELET COUNT 198 10^3/uL (130-450); RED BLOOD COUNT 4.27 10^6/uL (4.70-6.10); WHITE BLOOD COUNT 8.4 x10^3/uL (4.8-10.8)
[2022-12-12 08:48] LABS: ALBUMIN 3.2 g/dL (3.2-5.5); ALBUMIN/GLOBULIN RATIO 1.4 (1.0-2.2); BILIRUBIN,TOTAL 0.9 mg/dL (0.2-1.0); CALCIUM 7.9 mg/dL (8.5-10.3); TOTAL PROTEIN 5.5 g/dL (6.7-8.2)
--- NOTE | 2022-12-12 09:03 | PROVIDER PROGRESS NOTE ---
Subjective - General Admit Date: 12/11/22 - Other Other Information/Narrative: Patient states he is feeling much better this AM. He states his pain is much improved. He denies n/v. He feels his abdominal distension is improved. He denies flatus or BM. Taking only a few ice chips for comfort. +void, +ambulation. Objective - Patient Data Vital Signs: Vital Signs x48h Temp Pulse Resp BP Pulse Ox 12/12/22 07:24 36.5 C 82 16 131/65 H 94 12/12/22 04: 36.8 C 92 18 147/72 H 94 Weight: Weight 12/10/22 12/11/22 12/12/22 23:59 23:59 23:59 Weight (kg) 69 kg 69 kg Intake & Output: Intake and Output Totals x24h 12/10/22 12/11/22 12/12/22 23:59 23:59 23:59 Intake Total 1005 1245.000 Output Total 800 375 Balance 205 870.000 - Lab Results Lab Results: 12/12/22 08:32 12/12/22 08:32 Other Lab Results: Lab Results x24hrs 12/12/22 12/12/22 12/12/22 Range/Units 08:32 08:32 03:02 WBC 8.4 (4.8-10.8) x10^3/uL RBC 4.27 L (4.70-6.10) 10^6/uL Hgb 12.8 L (14.0-18.0) g/dL Hct 39.0 L (42.0-52.0) % MCV 91.3 (80.0-94.0) fL MCH 30.0 (27.0-31.0) pg MCHC 32.8 (32.0-36.0) g/dL RDW 13.0 (12.0-15.0) % Plt Count 198 (130-450) 10^3/uL MPV 10.5 (7.4-11.4) fL Neut # (Auto) 6.6 (1.5-6.6) 10^3/uL Lymph # (Auto) 0.7 L (1.5-3.5) 10^3/uL [place] # (Auto) 0.9 (0.0-1.0) 10^3/uL Eos # (Auto) 0.1 (0.0-0.7) 10^3/uL Baso # (Auto) 0.0 (0.0-0.1) 10^3/uL Absolute Nucleated RBC 0.00 x10^3/uL Nucleated RBC % 0.0 /100WBC Sodium 143 (135-145) mmol/L Potassium 4.0 (3.5-5.0) mmol/L Chloride 108 (101-111) mmol/L Carbon Dioxide 29 (21-32) mmol/L Anion Gap 6.0 (6-13) BUN 20 (6-20) mg/dL Creatinine 1.0 (0.6-1.2) mg/dL Estimated GFR (MDRD) 72 L (>89) Glucose 119 H (70-100) mg/dL Calcium 7.9 L (8.5-10.3) mg/dL Total Bilirubin 0.9 (0.2-1.0) mg/dL AST 243 H (10-42) IU/L ALT 364 H (10-60) IU/L Alkaline Phosphatase 170 H (42-121) IU/L Total Protein 5.5 L (6.7-8.2) g/dL Albumin 3.2 (3.2-5.5) g/dL Globulin 2.3 (2.1-4.2) g/dL Albumin/Globulin Ratio 1.4 (1.0-2.2) Lipase (22-51) U/L Urine Color DARK YELLOW Urine Clarity CLEAR (CLEAR) Urine pH 6.0 (5.0-7.5) PH Ur Specific [place] 1.020 (1.002-1.030) Urine Protein 30 H (NEGATIVE) mg/dL Urine Glucose (UA) NEGATIVE (NEGATIVE) mg/dL Urine Ketones TRACE (NEGATIVE) mg/dL Urine Occult Blood NEGATIVE (NEGATIVE) Urine Nitrite POSITIVE H (NEGATIVE) Urine Bilirubin NEGATIVE (NEGATIVE) Urine Urobilinogen 1 (NORMAL) (NORMAL) E.U./dL Ur Leukocyte Esterase NEGATIVE (NEGATIVE) Urine RBC 0-5 (0-5) /HPF Urine WBC 0-3 (0-3) /HPF Ur Squamous Epith Cells MOD Squamous H (<= Few) Urine Bacteria Few (None Seen) /HPF Urine Mucus Moderate Strands Ur Microscopic Review INDICATED Urine Culture Comments NOT INDICATED 12/11/22 12/11/22 Range/Units 13:16 13:16 WBC 16.5 H (4.8-10.8) x10^3/uL RBC 5.08 (4.70-6.10) 10^6/uL Hgb 15.2 (14.0-18.0) g/dL Hct 46.3 (42.0-52.0) % MCV 91.1 (80.0-94.0) fL MCH 29.9 (27.0-31.0) pg MCHC 32.8 (32.0-36.0) g/dL RDW 12.6 (12.0-15.0) % Plt Count 247 (130-450) 10^3/uL MPV 10.6 (7.4-11.4) fL Neut # (Auto) 15.0 H (1.5-6.6) 10^3/uL Lymph # (Auto) 0.5 L (1.5-3.5) 10^3/uL [place] # (Auto) 0.8 (0.0-1.0) 10^3/uL Eos # (Auto) 0.0 (0.0-0.7) 10^3/uL Baso # (Auto) 0.1 (0.0-0.1) 10^3/uL Absolute Nucleated RBC 0.00 x10^3/uL Nucleated RBC % 0.0 /100WBC Sodium 138 (135-145) mmol/L Potassium 4.4 (3.5-5.0) mmol/L Chloride 103 (101-111) mmol/L Carbon Dioxide 26 (21-32) mmol/L Anion Gap 9.0 (6-13) BUN 21 H (6-20) mg/dL Creatinine 1.1 (0.6-1.2) mg/dL Estimated GFR (MDRD) 64 L (>89) Glucose 135 H (70-100) mg/dL Calcium 9.4 (8.5-10.3) mg/dL Total Bilirubin 1.1 H (0.2-1.0) mg/dL AST 16 (10-42) IU/L ALT 17 (10-60) IU/L Alkaline Phosphatase 90 (42-121) IU/L Total Protein 7.2 (6.7-8.2) g/dL Albumin 4.5 (3.2-5.5) g/dL Globulin 2.7 (2.1-4.2) g/dL Albumin/Globulin Ratio 1.7 (1.0-2.2) Lipase 37 (22-51) U/L Urine Color Urine Clarity (CLEAR) Urine pH (5.0-7.5) PH Ur Specific [place] (1.002-1.030) Urine Protein (NEGATIVE) mg/dL Urine Glucose (UA) (NEGATIVE) mg/dL Urine Ketones (NEGATIVE) mg/dL Urine Occult Blood (NEGATIVE) Urine Nitrite (NEGATIVE) Urine Bilirubin (NEGATIVE) Urine Urobilinogen (NORMAL) E.U./dL Ur Leukocyte Esterase (NEGATIVE) Urine RBC (0-5) /HPF Urine WBC (0-3) /HPF Ur Squamous Epith Cells (<= Few) Urine Bacteria (None Seen) /HPF Urine Mucus Ur Microscopic Review Urine Culture Comments - Current Medications Current Medications: Current Medications Generic Name Dose Route Start Last Admin Trade Name Freq PRN Reason Stop Dose Admin Hydromorphone HCl 1 mg 12/11/22 18:27 12/11/22 19:09 Hydromorphone 1 Mg/Ml Carpuject IVP 1 mg Q2HR PRN Administration Severe Pain (Level 7-10) Potassium Chloride/Dextrose/Sod Cl 1,000 mls @ 100 mls/hr 12/11/22 18:00 0 12/12/22 07:00 D5ns W/20 Meq Kcl IV 100 mls/hr .Q10H [facility] Infusion Prochlorperazine Edisylate 10 mg 12/11/22 17:49 12/11/22 19:07 Prochlorperazine 10 Mg/2 Ml Vial IVP 10 mg Q6HR PRN Administration Nausea / Vomiting Sodium Chloride 10 ml 12/12/22 01:00 12/12/22 08:08 Sodium Chloride Flush 0.9% 10 Ml Syringe IVP Not Given 0100,0900,1700 [facility] - Physical Exam General Appearance: positive: No acute distress, Alert Eyes Bilateral: positive: PERRL ENT: positive: No signs of dehydration, Other (NG in place with 350mL out since arrival to floor.) Respiratory: positive: No respiratory distress Cardiovascular: positive: Regular rate & rhythm Abdomen: positive: No distention, Tenderness (mild LLQ, no right sided pain). negative: Guarding, Rebound Skin: positive: Color nml, No rash Extremities: positive: Non-tender, Full ROM Neurologic/Psychiatric: positive: Oriented x3 Impression/Plan - Problem List Problem List: This is an 82 y/o M who is admitted from the ED with multiple medical comorbidities. Surgery is consulted for recurrent small bowel obstruction. SBO - recurrent, likely due to adhesions given multiple previous surgeries - NG in place, to intermediate continuous suction. 350mL out since arrival to floor - Plan to continue NPO, and obtain gastrograffin SBFT this AM. - I discussed this plan of care with the patient, his , and his primary team - I remain hopeful that he will resolve this obstruction with conservative, non operative treatment, but did review with the patient that if he does not improve with conservative management, open surgical intervention may be required. HTN, COPD, BPH, h/o seizure - as per primary team Thank you for consulting me in the care of this patient. I will continue to follow closely.
[2022-12-12] MEDS ORDERED: DIATR MEGLU/DIATRIZOATE SODIUM 120 ML BOTTLE ONE (09:36)
[2022-12-12] MEDS ORDERED: PHENOL THROAT SPRAY 177 ML MM PRN (10:27)
--- NOTE | 2022-12-12 11:01 | PHARMACY PROGRESS NOTE ---
- Best Possible Medication History Admit Date and Time: 12/11/22 1747 Processed by: Pharmacy Medication History completed: Yes Secondary Source(s): Written medication list, Pharmacy records, Insurance records As the person ultimately responsible for medication therapy, providers are able to order a medication from an existing home medication list in [facility] via the "Reconcile Routine" prior to Confirmation of that medication by sales support representative. Such practice is discouraged except when the physician, in their clinical judgment, deems that a medical need exists for a medication without regard to previous use.
[2022-12-12 13:00] VITALS: BP 141/71
--- NOTE | 2022-12-12 14:08 | XRAY Report ---
PROCEDURE: SBFT Challenge Panel INDICATIONS: OBSTRUCTION COMPARISON: None CONTRAST: Gastrografin FINDINGS: 1 minute, 15 minute and two-hour images were obtained of the abdomen after administration of Gastrogr afin through the nasogastric tube in stomach. 1 minute film shows Gastrografin extending through the stomach into a normal-appearing duodenum. There are surgical clips in the left upper quadrant as well as right hip prosthesis. 15 minute film shows progression of contrast into the jejunum. The 2 hour film shows contrast through out the colon and rectum. IMPRESSION: 2 hour film shows enteric contrast in the colon and rectum. No evidence of obstruction. Reviewed by: Temo Mata MD on 12/12/2022 1:06 PM [facility] Approved by: Temo Mata MD on 12/12/2022 1:06 PM [facility] Station ID: [id number]
--- NOTE | 2022-12-12 16:25 | PROVIDER PROGRESS NOTE ---
Hospitalist Cross-cover Note - Cross-Cover Note Cross-Cover Note: ECHOCARDIOGRAM REPORT 12/12/22 As a Board-certified [employer], credentialed to do and interpret Echoes, I performed a bedside Echo with Doppler study and bubble study on this patient. Indication: Stroke-like symptoms (TIA). Image quality: Good Findings: Normal left atrial size, normal right atrial size. Normal aortic root diameter size Normal left ventricular size and wall thickness, normal LV contractility, ejection fraction 60 to 65%. Normal right ventricular size and wall thickness, normal RV contractility. The mitral and tricuspid valves appear structurally normal. The aortic and pulmonic valves were poorly visualized. Doppler exam of the valves shows only trace mitral regurgitation. No pericardial effusion And agitated "bubble" study was performed via injection through his peripheral IV. There was no passage of "bubbles" from the right heart to the left heart at rest or after cough. Summary: Structurally normal heart.
--- NOTE | 2022-12-12 18:20 | Discharge Plan ---
Discharge Plan Problem Reviewed?: Yes Disposition: Home, Self Care Condition: Stable Diet: Soft Activity Restrictions: Activity as Tolerated Shower Restrictions: No Driving Restrictions: No Instruction Topics: Obstruction Sm Bowel, ED Abdominal Pain Adhesions Health Concerns: You were hospitalized to treat abdominal pain, nausea and vomiting and we found the cause to be a recurrent bowel obstruction. The management of that was to give your bowel rest, and allow this area to open up. You received IV fluids. When your diet was slowly advanced, you tolerated the soft diet and therefore you are being discharged home today. Please continue to eat a soft diet for the next 2 days. This includes foods with consistency of applesauce, scrambled eggs, mashed potatoes and ground beef. Also drink a lot of fluids to stay well-hydrated which will help the bowel with elimination. After 2 days, you may start to advance to more solid foods. You may resume all your usual pre-hospital medications. Please see your primary care provider in the next 1 to 2 weeks for hospital follow-up visit. You will need to have repeat blood tests to check your liver. Plan of Treatment: As above. Care Goals: Improvement in symptoms and stabilization are the goals. Assessment: Patient and understand and are agreeable with the plan. Additional Instructions or Follow Up instructions: If you have new or worsening symptoms, call your Primary Care Provider for advice, or come to the ER.. No Smoking: If you smoke, Please STOP! Call for help. Follow-up with: Romario Mitchell MD [Primary Care Provider] -
--- NOTE | 2022-12-12 18:56 | DISCHARGE SUMMARY ---
<Kaley Contreras - Last Filed: 12/13/22 14:50> Discharge Summary Admit Date: 12/11/22 Discharge Date: 12/12/22 Discharging Provider: Dr. Veronica Nelson Primary Care Provider: Romario Mitchell MD Condition at Discharge: Stable Discharge Disposition: 01 Home, Self Care - HPI History of Present Illness: Patient is an 82 year old male with a history of appendectomy, cholecystectomy, and multiple small bowel obstructions resulting in at least 5 hospitalizations over the last several decades. Last night, developed severe abdominal pain accompanied by significant abdominal bloating and dry heaving, but no vomiting. He also felt constipated. He came to the ER via EMS who administered morphine. In the ER, a CT confirmed small bowel obstruction. His pain was treated with IV dilaudid, which helped. Dr. Vasquez was consulted, who spoke with the patient about treatment. He discussed surgery with the patient, who stated that he was advised in the past by his load blocker to 'not entertain surgery' and they agreed to try conservative measure first. An NG tube was placed and set to intermediate continuous suction. When he presented last year with similar symptoms, a Gastrografin challenge was performed successfully at [facility]. He recently had a Urolift 3 weeks ago for BPH and has no complications. Currently, he reports that his abdominal bloating and pain have decreased. He rates his pain at a 2/10 at rest, but an 8/10 if he moves, coughs, or breathes deeply. He is unable to walk due to pain, though Dr. Vasquez would like him to walk 3 times daily to promote bowel function. He did have a small bowel movement this morning. His last abdominal operation was by Dr. James Marion in when he had a small bowel resection. His chart incorrectly reported a history of COPD and hyperlipidemia, and patient requested that these diagnoses be removed. - CONSULTS | PROCEDURES Consultations: Dr. Shekhar Vasquez, Dr. Margaret Moe - HOSPITAL COURSE Hospital Course: (1) Small bowel obstruction Abdominal CT w/contrast revealed dilated proximal small bowel measuring 5.2 cm in diameter, consistent with obstruction. Transition to decompressed bowel was noted in the left flank. Dr. Vasquez was consulted 12/11 and he discussed the option of surgery with the patient, which the pt and his declined. An NG tube was placed with interme diate continuous suction on 12/11. Dr. Moe spoke with patient 12/12 and proceeded with a Gastrograffin challenge. By noon, he had 5 bowel movements. NG tube was removed shortly after, and the patient ate some apple sauce for lunch, which he tolerated well. I then transitioned him to a soft diet for dinner, which he unexpectedly tolerated well with no abdominal pain. Because of this, he was able to be discharged, which was faster that I initially anticipated. He should continue his pureed diet for the next 2 days and slowly transition to soft foods, then regular foods. Dilaudid was used for pain control throughout his stay. He was noted to have elevated WBC count of 16.5 on admission, which was likely from demargination as it resolved by discharge. (2) Elevated LFTs (R79.89) Due to a slightly elevated bilirubin of 1.1 yesterday, I ordered a CMP to check liver function. I found that his AST increased from 16 to 243 and ALT from 17 to 243. His alk-phos also increased from 90 to 174. Lipase was normal at 26. CT w/contrast showed that his liver is normal in size and attenuation. No contour deformity present. He has a hx of cholecystectomy which rules out gallbladder pathology. He has not been hypotensive during his stay which makes shock liver less likely, and he also has no signs of acute liver failure. Patient reported that he is not a heavy drinker and has only 1-2 glasses of wine weekly. In this last week, he did drink Tuesday, , and Tuesday (approx 1-3 glasses of wine each day) because he's had house guests. When the nurse as ked further questions about drinking such as "has anyone ever told you that you have a problem with drinking" and "has drinking ever interfered with your life", he became very agitated and felt singled out by this questioning. He did not wish to extend his stay in the hospital for further liver testing, but rather explore this as outpatient. He wanted staff to "drop it". For this reason, I did not order a liver ultrasound or further testing. I recommend rechecking liver enzymes with his PCP within the next few weeks. (3) Prerenal azotemia Patient's BUN was 21 and creatinine was 1.1 on admission. This elevated BUN/Creatinine ratio was likely prerenal azotemia due to dehydration, as it resolved by day of discharge after IV fluids. - ALLERGIES Allergies/Adverse Reactions: Allergies Allergy/AdvReac Type Severity Reaction Status Date / Time epinephrine Allergy Rash Verified 12/11/22 12:53 latex Allergy Rash Verified 12/11/22 12:53 - MEDICATIONS Home Medications: Ambulatory Orders Medication Instructions Recorded Confirmed Gabapentin 300 mg PO QDLUNCH 02/09/17 12/12/22 Cholestyramine [Questran] 4 gm PO DAILY 02/19/20 12/12/22 Finasteride [Proscar] 5 mg PO QPM 02/19/20 12/12/22 Gabapentin 600 mg PO QDBREAKFAST 02/19/20 12/12/22 Gabapentin 600 mg PO QDDINNER 02/19/20 12/12/22 Meloxicam 15 mg PO DAILY 02/19/20 12/12/22 Mirabegron [Myrbetriq] 50 mg PO DAILY 02/19/20 12/12/22 Omeprazole Magnesium 20 mg PO QDAC 06/23/21 12/12/22 Beclomethasone Dipropionate [Qvar 2 puffs INH DAILY 12/12/22 12/12/22 Redihaler (80 mcg)] Phenazopyridine HCl [Pyridium] 200 mg PO TID PRN 12/12/22 12/12/22 Verapamil [Calan] 120 mg PO BID 12/12/22 12/12/22 - PHYSICAL EXAM AT DISCHARGE General Appearance: positive: No acute distress, Alert, Other (Patient ambulated normally with no pain) Eyes Bilateral: positive: Normal inspection. negative: No scleral icterus ENT: positive: Pharynx nml, No signs of dehydration Neck: positive: Nml inspection, Thyroid nml, No JVD, Trachea midline. negative: Stiff neck Respiratory: positive: Chest non-tender, No respiratory distress, Breath sounds nml Cardiovascular: positive: Regular rate & rhythm, No murmur, No gallop Abdomen: positive: Other (Bowel sounds significantly increased compared to previous exams in all 4 quadrants) Skin: positive: Color nml, No rash, Warm, Dry Extremities: positive: Full ROM, No pedal edema Neurologic/Psychiatric: positive: Oriented x3, CN's nml (2-12), Motor nml, Mood/affect nml - LABS Result Diagrams: 12/12/22 08:32 12/12/22 08:32 - FOLLOW UP Follow Up: See PCP Romario Mitchell MD in 1-2 weeks - TIME SPENT Time Spent in Discharge (Minutes): 45 <Veronica Nelson - Last Filed: 12/13/22 14:59> Discharge Summary - LABS Result Diagrams: 12/12/22 08:32 12/12/22 08:32 - FOLLOW UP Follow Up: Attestation: I attest that the patient was seen and examined by me with a separate encounter after being seen by the PA student. I reviewed the student's documentation including patient history, physical exam, laboratory, imaging, clinical assessment, and treatment plan. I have discussed the management of the patient with the student, with the patient, and there are no changes.
== END 2022-12-12 18:41 | disposition home or self-care (01) | DRG 390 ==
LOC: EDUNIT# → ED 12:44 → MS2 17:49
PROVIDERS: ADMIT Internal Medicine; ATTEND Internal Medicine
DX: K56.609 Unspecified intestinal obstruction, unspecified as to partial versus complete obstruction (principal); J44.9 Chronic obstructive pulmonary disease, unspecified; K56.50 Intestinal adhesions [bands], unspecified as to partial versus complete obstruction; R79.89 Other specified abnormal findings of blood chemistry; N40.1 Benign prostatic hyperplasia with lower urinary tract symptoms; N39.498 Other specified urinary incontinence; Z90.49 Acquired absence of other specified parts of digestive tract; J45.909 Unspecified asthma, uncomplicated
CPT/HCPCS: 36415; 43753; 74018; 74177; 74250; 80053; 81001; 83690; 85025; 96374; 96375; 99284; 99285; A9270; J1170; Q9963; Q9967; 81003; 87086